=== PATIENT | male | born 1945 | race Caucasian/White ===

== ENCOUNTER 2016-03-13 09:45 | Emergency (ER) | payer BC ==
[2016-03-13 10:12] VITALS: BP 127/73
--- NOTE | 2016-03-13 11:35 | UC ---
Throat Pain/Nasal John HPI - HPI Summary HPI Summary: complaint of cough , nasal congestion that started approx 4-5 days ago slightly productive cough occasional headaches, denies ear pain sore throat seems to be getting better denies fever and chills has been taking zpack and finished it today - History of Current Complaint Chief Complaint: UCRespiratory Stated Complaint: COUGH Time Seen by Provider: 03/13/16 11:27 Hx Obtained From: Patient - Allergies/Home Medications Allergies/Adverse Reactions: Allergies Allergy/AdvReac Type Severity Reaction Status Date / Time Oxycodone [From Oxycontin] Allergy Unknown Hives Verified 03/13/16 10:12 Hydrocodone Allergy Hives Verified 03/13/16 10:12 Statins Allergy Hives Verified 03/13/16 10:12 Home Medications: Home Medications Aspirin EC TAB* [Ecotrin EC TAB*] 325 mg PO DAILY 03/13/16 [History Confirmed ] PMH/Surg Hx/FS Hx/Imm Hx Previously Healthy: Yes Endocrine History Of: Denies: Diabetes Cardiovascular History Of: Reports: Cardiac Disorders - Afib, Hypertension, Atrial Fibrillation Denies: Pacemaker/ICD Respiratory History Of: Denies: COPD, Asthma Neurological History Of: Reports: CVA - Admission Dx, possible - Surgical History Surgical History: Yes Surgery Procedure, Year, and Place: left knee replacement,prostate ca - Family History Known Family History: Positive: Hypertension, Diabetes, Other - ALZHEIMERS Negative: Cardiac Disease - Social History Occupation: Retired Lives: With Family Alcohol Use: Rare Substance Use Type: None Smoking Status (MU): Never Smoked Tobacco - Immunization History Most Recent Influenza Vaccination: never Most Recent Tetanus Shot: within ten years Most Recent Pneumonia Vaccination: never Review of Systems Constitutional: Negative Skin: Negative Eyes: Negative ENT: Nasal Discharge Respiratory: Cough Cardiovascular: Negative Gastrointestinal: Negative Genitourinary: Negative Motor: Negative Neurovascular: Negative Musculoskeletal: Negative Neurological: Negative Psychological: Negative All Other Systems Reviewed And Are Negative: Yes Physical Exam Triage Information Reviewed: Yes Appearance: No Pain Distress, Well-Nourished Vital Signs: Initial Vital Signs Temp 98.0 F 03/13/16 10:09 Pulse 80 03/13/16 10:09 Resp 16 03/13/16 10:09 BP 127/73 03/13/16 10:09 Pulse Ox 98 03/13/16 10:09 Eyes: Positive: Conjunctiva Clear ENT: Positive: Pharyngeal erythema, Nasal drainage, TMs normal, Other: - no sinus tenderness. Negative: TM bulging, TM red, Tonsillar swelling, Tonsillar exudate Neck: Positive: No Lymphadenopathy Respiratory: Positive: Lungs clear, Normal breath sounds, No respiratory distress Cardiovascular: Positive: RRR, No Murmur, Pulses Normal Abdomen Description: Positive: Nontender, Soft Bowel Sounds: Positive: Present Musculoskeletal: Positive: No Edema Neurological: Positive: Alert Psychological Exam: Normal Skin Exam: Normal Throat Pain/Nasal Course/Dx - Differential Dx/Diagnosis Differential Diagnosis/HQI/PQRI: Influenza, Pharyngitis, URI Provider Diagnoses: URI Discharge - Discharge Plan Condition: Stable Disposition: HOME Patient Education Materials: Upper Respiratory Infection (ED) Referrals: Tyrel Goel MD [Primary Care Provider] - Additional Instructions: VIRAL UPPER RESPIRATORY INFECTION (COMMON COLD) What is Viral Upper Respiratory Infection? Viral upper respiratory infection is the medical term for the common cold. Respiratory infections can be caused by either a virus or bacteria. The common cold is caused by a virus. The virus travels through the air and can be passed easily from one person to another. This is one reason that it is so important to cover your mouth when you cough or sneeze. When you cover your mouth you will get the virus on your hands. If you touch something with that hand the virus is spread to the object you touch. Because of this you should be sure to wash your hands often when you have a cold. Symptoms usually begin 1 to 3 days after the virus takes hold in your body. Other people can catch your cold even before you start to notice symptoms, which is one reason why colds are hard to prevent. Symptoms May Include: Scratchiness or tickling in the throat Sore throat Stuffy nose Generalized aches and pains Coughing or sneezing Feeling tired Treatment Recommendations: Drink plenty of clear, nonalcoholic fluids, such as water, sports drinks, or juice. For example, an average adult should drink 8 ounces every hour, a child 6 to 10 years should drink 4 ounces every hour, and a child under 6 should drink 1 to 2 ounces every hour. You should rest as much as possible. You can use a cool-mist humidifier or steam vaporizer to increase air moisture. This will make it easier to breathe. Remember that a steam vaporizer may contain hot water that can cause severe abreu. If you smoke, stopsmoke irritates bronchial passages. If you are coughing up mucus, and milk seems to make the sputum thicker, do not eat or drink foods that contain milk. You want to try to cough up mucous whenever possible so that you dont get pneumonia. Do not use cough suppressant medicine without your healthcare providers OK. You should take all medications prescribed until completely gone, or as instructed. Non-prescription medicine such as acetaminophen (Tylenol) or ibuprofen (Motrin , Advil) may help your aches, pains, and fever. Do not take someone else's medicine, or penicillin tablets that you may have saved. You could cause a more serious problem than you already have. Don't bundle up to sweat out a fever. It only makes your fever worse. If you feel cold, cover up; if you feel warm, dress lightly.
== END 2016-03-13 11:47 | disposition home or self-care (01) ==
LOC: UCCORT 09:45
DX: J06.9 Acute upper respiratory infection, unspecified (principal); Z96.652 Presence of left artificial knee joint; Z85.46 Personal history of malignant neoplasm of prostate; Z79.82 Long term (current) use of aspirin; Z88.5 Allergy status to narcotic agent; Z88.8 Allergy status to other drugs, medicaments and biological substances
CPT/HCPCS: 99211; G0463

== ENCOUNTER 2016-11-03 09:46 | Emergency (ER) | payer BC ==
[2016-11-03] MEDS ORDERED: Aspirin Low Dose CHEW TAB* 81 MG PO ONE (10:11)
--- NOTE | 2016-11-03 10:22 | UC ---
Shortness of Breath HPI - HPI Summary HPI Summary: shortness of breath x 4 weeks no chest pain , + palpitation Hx of Afib , sleep apnea on CPAP sx or sob is worse at night lying down, better in sitting/ standing no fever, no chills, no cough , + wheezing - History of Current Complaint Chief Complaint: UCRespiratory Stated Complaint: UPPER RESPIRATORY SHORTNESS OF BREATH Time Seen by Provider: 11/03/16 09:49 Hx Obtained From: Patient Onset/Duration: Gradual Onset, Lasting Weeks - 4, Still Present, Worse Since - past few days Timing: Constant Current Severity: Moderate Dyspnea At: Orthopena Aggrevating Factors: Deep Breaths, Recumbent Position Alleviating Factors: Nothing Associated Signs & Symptoms: Positive: Wheezing. Negative: Chest Pain w/Cough, Chest Pain Unrelated to Cough, Fever, Chills, Diaphoresis, Nasal Congestion, Dizzy, Calf Pain/Swelling, Edema - Allergy/Home Medications Allergies/Adverse Reactions: Allergies Allergy/AdvReac Type Severity Reaction Status Date / Time Oxycodone [From Oxycontin] Allergy Unknown Hives Verified 11/03/16 09:58 Hydrocodone Allergy Hives Verified 11/03/16 09:58 Statins Allergy Hives Verified 11/03/16 09:58 Home Medications: Home Medications Multivitamins/Minerals TAB* [Thera M Plus TAB*] 1 tab PO DAILY 11/03/16 [ History Confirmed 11/03/16] PMH/Surg Hx/FS Hx/Imm Hx Cardiovascular History: Hypertension, Atrial Fibrillation Respiratory History: Other - sleep apnea Other Respiratory History: SLEEP APNEA GI/ History: Gastroesophageal Reflux Neurological History: TIA, CVA - Surgical History Surgical History: Yes Surgery Procedure, Year, and Place: Left TKA, 2010, [facility] [place] - Family History Known Family History: Positive: Hypertension, Diabetes, Other - ALZHEIMERS Negative: Cardiac Disease - Social History Alcohol Use: Rare Substance Use Type: None Smoking Status (MU): Never Smoked Tobacco - Immunization History Most Recent Influenza Vaccination: Not the 2017/2017 Season Most Recent Tetanus Shot: within ten years Most Recent Pneumonia Vaccination: never Review of Systems Constitutional: Negative Skin: Negative Eyes: Negative ENT: Negative Respiratory: Shortness Of Breath Cardiovascular: Negative Gastrointestinal: Negative Genitourinary: Negative Motor: Negative Neurovascular: Negative Musculoskeletal: Negative Is Patient Immunocompromised?: No All Other Systems Reviewed And Are Negative: Yes Physical Exam Triage Information Reviewed: Yes Appearance: Well-Appearing, No Pain Distress, Well-Nourished Vital Signs: Initial Vital Signs Temp 97.1 F 11/03/16 09:59 Pulse 48 11/03/16 09:59 Resp 20 11/03/16 09:59 BP 145/82 11/03/16 09:59 Pulse Ox 98 11/03/16 09:59 Vital Signs Reviewed: Yes Eyes: Positive: Conjunctiva Clear ENT: Positive: Normal ENT inspection, Hearing grossly normal, Pharynx normal Neck exam: Normal Neck: Positive: Supple, Nontender Respiratory: Positive: Chest non-tender, Lungs clear, Normal breath sounds Cardiovascular: Positive: Tachycardia, Other: - irrigular/ irr Abdomen Description: Positive: Nontender, Soft Musculoskeletal Exam: Normal Skin Exam: Normal Shortness of Breath Dx - Course Course Of Treatment: AFIB WITH RAPID RATE / CHF. PT WILL GO TO [facility] FOR [facility]AL AND TX. PT. REFUSING AMBULANCE TRANSFER. 4 [facility]ABY ASPIRIN WAS GIVEN. SPOKE TO DR HOLT ABOUT THE TRANSFER - Differential Dx/Diagnosis Provider Diagnoses: afib. CHF Discharge - Discharge Plan Condition: Guarded Disposition: TRANS HIGHER LVL OF CARE FAC
[2016-11-03 10:23] VITALS: BP 130/72
== END 2016-11-03 10:28 | disposition short-term general hospital (02) ==
LOC: UCCORT 09:46
DX: I48.91 Unspecified atrial fibrillation (principal); I50.9 Heart failure, unspecified; I10 Essential (primary) hypertension; G47.30 Sleep apnea, unspecified; K21.9 Gastro-esophageal reflux disease without esophagitis; Z86.73 Personal history of transient ischemic attack (TIA), and cerebral infarction without residual deficits
CPT/HCPCS: 93005; 99212; A9270-GY; G0463

== ENCOUNTER 2016-11-03 11:36 | Observation (INO) | payer BC ==
[2016-11-03] MEDS ORDERED: Diltiazem IV* 5 MG/ML 5 ML VIAL (for loading dose/IV Push) (25 MG) IV PUSH ONE (12:25)
[2016-11-03] MEDS ORDERED: Diltiazem IV VIAL* 125 MG in D5W 100 ML BAG* 100 ML IV ONE (12:27)
[2016-11-03 12:58] LABS: Hematocrit 46 % (42-52); Hemoglobin 15.1 g/dl (14.0-18.0); Mean Corpuscular HGB Conc 33 g/dl (31-36); Mean Corpuscular Hemoglobin 30 pg (27-31); Mean Corpuscular Volume 90 fL (80-94); Mean Platelet Volume 8 um3 (7.4-10.4); Red Blood Count 5.11 10^6/ul (4.0-5.4); Red Cell Distribution Width 14 % (10.5-15); White Blood Count 6.9 10^3/ul (3.5-10.8)
[2016-11-03 13:21] LABS: Albumin 3.9 g/dL (3.2-5.2); BUN/Creatinine Ratio 20.3 (8-20); Calcium 8.9 mg/dL (8.6-10.3); EGFR Non-African American 55.2 (>60); Globulin 2.4 g/dL (2-4); Potassium 4.2 mmol/L (3.5-5.0); Total Bilirubin 1.6 mg/dL (0.2-1.0); Total Protein 6.3 g/dL (6.4-8.9)
[2016-11-03 13:22] LABS: Troponin I 0.03 ng/mL (<0.04)
--- NOTE | 2016-11-03 13:29 | RAD ---
INDICATION: Chest pain. COMPARISON: Comparison is made with a prior chest x-ray study from May 04, 2015. TECHNIQUE: Dual-energy PA and lateral views of the chest were obtained. FINDINGS: The heart appears mildly enlarged and unchanged from the prior exam. The lungs are underinflated. There is mild prominence of the interstitial markings and small bilateral pleural effusions. No focal infiltrate is seen. IMPRESSION: MILD INTERSTITIAL PROMINENCE AND SMALL BILATERAL PLEURAL EFFUSIONS SUGGESTING THE POSSIBILITY OF CONGESTIVE HEART FAILURE.
[2016-11-03] MEDS ORDERED: Furosemide IV* 10 MG/ML 2 ML VIAL (20 MG) IV SLOW PU ONE (14:14)
[2016-11-03] MEDS ORDERED: Ondansetron INJ* 2 MG/ML VIAL IV PRN (15:30)
[2016-11-03] MEDS ORDERED: Acetaminophen TAB* 325 MG PO PRN (15:30)
--- NOTE | 2016-11-03 15:32 | ED ---
Hitseh Salinas Rebecca, scribed for Tyrel Devine MD on 11/03/16 at 1330 . Shortness of Breath - HPI Summary HPI Summary: Pt is a 71 y/o M who presents to ED c/o acute on chronic SOB. Pt has been experiencing SOB for multiple months, with sx worsening in the last 3 days, reporting that he feels more SOB on exertion than previously. He additionally experiences SOB while laying in bed for the past 3 days as well as when he attempts to climb up a ladder. Additionally c/o fatigue, palpitations characterized as racing and a productive cough bringing up scant amounts of yellow sputum. Additionally notes an "odd sensation" in the upper chest. Denies fever, chills. PMHx A Fib for which he is not on medication and has not followed up with his disability services coordinator in 3 years. - History of Current Complaint Chief Complaint: EDShortnessOfBreath Time Seen by Provider: 11/03/16 12:11 Hx Obtained From: Patient Onset/Duration: Still Present, Worse Since - 3 days Dyspnea At: Exertion - Exertion and laying in bed Aggrevating Factors: Other - Exertion Alleviating Factors: Nothing Associated Signs & Symptoms: Cough (Productive) - Allergy/Home Medications Allergies/Adverse Reactions: Allergies Allergy/AdvReac Type Severity Reaction Status Date / Time Oxycodone [From Oxycontin] Allergy Unknown Hives Verified 11/03/16 09:58 Hydrocodone Allergy Hives Verified 11/03/16 09:58 Statins Allergy Hives Verified 11/03/16 09:58 PMH/Surg Hx/FS Hx/Imm Hx Endocrine/Hematology History: Denies: Hx Diabetes Cardiovascular History: Reports: Hx Angina, Hx Atrial Fibrillation, Hx Hypercholesterolemia, Hx Hypertension Denies: Hx Pacemaker/ICD Respiratory History: Reports: Hx Sleep Apnea - CPAP Denies: Hx Asthma, Hx Chronic Obstructive Pulmonary Disease (COPD) Musculoskeletal History: Reports: Hx Orthopedic Injury, Other Musculoskeletal History - left knee surgery, then replaced. Sensory History: Reports: Hx Contacts or Glasses, Hx Hearing Problem - "not very good" Denies: Hx Hearing Aid Opthamlomology History: Reports: Hx Contacts or Glasses Psychiatric History: Denies: Hx Panic Disorder - Cancer History Cancer Type, Location and Year: Prostate Hx Chemotherapy: No Hx Radiation Therapy: No - Surgical History Surgery Procedure, Year, and Place: Left TKA, 2010, [facility] Hx Anesthesia Reactions: No Infectious Disease History: No Infectious Disease History: Denies: Hx Clostridium Difficile, Hx Hepatitis, Hx Human Immunodeficiency Virus (HIV), Hx of Known/Suspected MRSA, Hx Shingles, Hx Tuberculosis, Hx Known/ Suspected VRE, Hx Known/Suspected VRSA, History Other Infectious Disease, Traveled Outside the [place] in Last 30 Days - Family History Known Family History: Positive: Hypertension, Diabetes, Other - ALZHEIMERS Negative: Cardiac Disease - Social History Alcohol Use: Rare Substance Use Type: Reports: None Smoking Status (MU): Never Smoked Tobacco Review of Systems Positive: Fatigue. Negative: Fever, Chills Positive: Palpitations - racing, Other - "odd sensation" in the chest Positive: Shortness Of Breath, Cough - productive - scant ywllow sputum All Other Systems Reviewed And Are Negative: Yes Physical Exam Vital Signs On Initial Exam: Initial Vitals Temp Pulse Resp BP Pulse Ox 98.7 F 125 18 141/100 97 11/03/16 11:40 11/03/16 11:40 11/03/16 11:40 11/03/16 11:40 11/03/16 11:40 - David Coma Scale Coma Scale Total: 15 Diagnostics - Vital Signs Vital Signs Temp Pulse Resp BP Pulse Ox 11/03/16 13:11 98 22 122/67 95 11/03/16 13:01 100 24 94 11/03/16 12:19 103 21 132/80 92 11/03/16 12:11 124 26 92 11/03/16 11:40 98.7 F 125 18 141/100 97 - Laboratory Lab Results: Lab Results 11/03/16 11/03/16 11/03/16 Range/Units 12:35 12:35 12:35 WBC 6.9 (3.5-10.8) 10^3/ul RBC 5.11 (4.0-5.4) 10^6/ul Hgb 15.1 (14.0-18.0) g/dl Hct 46 (42-52) % MCV 90 (80-94) fL MCH 30 (27-31) pg MCHC 33 (31-36) g/dl RDW 14 (10.5-15) % Plt Count 179 (150-450) 10^3/ul MPV 8 (7.4-10.4) um3 Neut % (Auto) 69.2 (38-83) % Lymph % (Auto) 19.7 L (25-47) % [place] % (Auto) 8.0 (1-9) % Eos % (Auto) 2.1 (0-6) % Baso % (Auto) 1.0 (0-2) % Absolute Neuts (auto) 4.8 (1.5-7.7) 10^3/ul Absolute Lymphs (auto) 1.4 (1.0-4.8) 10^3/ul Absolute Monos (auto) 0.6 (0-0.8) 10^3/ul Absolute Eos (auto) 0.1 (0-0.6) 10^3/ul Absolute Basos (auto) 0.1 (0-0.2) 10^3/ul Absolute Nucleated RBC 0.01 10^3/ul Nucleated RBC % 0.1 INR (Anticoag Therapy) 1.05 (0.89-1.11) D-Dimer, Quantitative 272 H (Less Than 230) ng/mL Sodium 138 (133-145) mmol/L Potassium 4.2 (3.5-5.0) mmol/L Chloride 106 (101-111) mmol/L Carbon Dioxide 24 (22-32) mmol/L Anion Gap 8 (2-11) mmol/L BUN 26 H (6-24) mg/dL Creatinine 1.28 H (0.67-1.17) mg/dL Est GFR ( Amer) 71.0 (>60) Est GFR (Non-Af Amer) 55.2 (>60) BUN/Creatinine Ratio 20.3 H (8-20) Glucose 132 H (70-100) mg/dL Lactic Acid (0.5-2.0) mmol/L Calcium 8.9 (8.6-10.3) mg/dL Total Bilirubin 1.60 H (0.2-1.0) mg/dL AST 24 (13-39) U/L ALT 30 (7-52) U/L Alkaline Phosphatase 56 (34-104) U/L Troponin I 0.03 (<0.04) ng/mL Total Protein 6.3 L (6.4-8.9) g/dL Albumin 3.9 (3.2-5.2) g/dL Globulin 2.4 (2-4) g/dL Albumin/Globulin Ratio 1.6 (1-3) 11/03/16 Range/Units 12:35 WBC (3.5-10.8) 10^3/ul RBC (4.0-5.4) 10^6/ul Hgb (14.0-18.0) g/dl Hct (42-52) % MCV (80-94) fL MCH (27-31) pg MCHC (31-36) g/dl RDW (10.5-15) % Plt Count (150-450) 10^3/ul MPV (7.4-10.4) um3 Neut % (Auto) (38-83) % Lymph % (Auto) (25-47) % [place] % (Auto) (1-9) % Eos % (Auto) (0-6) % Baso % (Auto) (0-2) % Absolute Neuts (auto) (1.5-7.7) 10^3/ul Absolute Lymphs (auto) (1.0-4.8) 10^3/ul Absolute Monos (auto) (0-0.8) 10^3/ul Absolute Eos (auto) (0-0.6) 10^3/ul Absolute Basos (auto) (0-0.2) 10^3/ul Absolute Nucleated RBC 10^3/ul Nucleated RBC % INR (Anticoag Therapy) (0.89-1.11) D-Dimer, Quantitative (Less Than 230) ng/mL Sodium (133-145) mmol/L Potassium (3.5-5.0) mmol/L Chloride (101-111) mmol/L Carbon Dioxide (22-32) mmol/L Anion Gap (2-11) mmol/L BUN (6-24) mg/dL Creatinine (0.67-1.17) mg/dL Est GFR ( Amer) (>60) Est GFR (Non-Af Amer) (>60) BUN/Creatinine Ratio (8-20) Glucose (70-100) mg/dL Lactic Acid 1.5 (0.5-2.0) mmol/L Calcium (8.6-10.3) mg/dL Total Bilirubin (0.2-1.0) mg/dL AST (13-39) U/L ALT (7-52) U/L Alkaline Phosphatase (34-104) U/L Troponin I (<0.04) ng/mL Total Protein (6.4-8.9) g/dL Albumin (3.2-5.2) g/dL Globulin (2-4) g/dL Albumin/Globulin Ratio (1-3) Result Diagrams: 11/03/16 12:35 11/03/16 12:35 Lab Statement: Any lab studies that have been ordered have been reviewed, and results considered in the medical decision making process. - Radiology CXR Xray Interpretation: Positive (See Comments) - MILD INTERSTITIAL PROMINENCE AND SMALL BILATERAL PLEURAL EFFUSIONS SUGGESTING THE POSSIBILITY OF CONGESTIVE HEART FAILURE. ED physician reviewed radiology report and agrees. Radiology Interpretation Completed By: Radiologist - EKG 1231 Cardiac Rate: Tachycardia - 101 bpm EKG Rhythm: Atrial Fibrillation EKG Interpretation: No STEMI Course/Dx - Course Assessment/Plan: Pt is a 71 y/o M who presents to ED c/o acute on chronic SOB, present for multiple months, with sx worsening in the last 3 days, reporting that he feels more SOB on exertion than previously. He additionally experiences SOB while laying in bed for the past 3 days as well as when he attempts to climb up a ladder. Additionally c/o fatigue, palpitations characterized as racing and a productive cough bringing up scant amounts of yellow sputum. Additionally notes an "odd sensation" in the upper chest. Denies fever, chills. PMHx A Fib for which he is not on medication and has not followed up with his disability services coordinator in 3 years. CXR reveals mid interstitial prominence and small bilateral pleural effusions suggesting the possibility of CHF. EKG is sinus tachycardia in A Fib. Troponin of 0.03. In the ED course, pt was given Diltiazem and Lasix IV. Discussed care of pt with Dr. Shah who accepts pt for admission. Pt will be admitted with Dx of CHF and A Fib. He understands and agrees. Pt medications reviewed this visit. Elevated BP noted and advised to f/ u with PCP. - Diagnoses Provider Diagnoses: CHF (congestive heart failure), A-fib - Physician Notifications Discussed Care of Patient With: Genie Shah Time Discussed With Above Provider: 14:13 Instructed by Provider To: Other - Accepts pt for admission Discharge - Discharge Plan Condition: Stable Disposition: ADMITTED TO [facility] documentation as recorded by the Hitesh acevedo Rebecca accurately reflects the service I personally performed and the decisions made by , Tyrel Devine MD.
[2016-11-03] MEDS ORDERED: Rivaroxaban TAB(*) 20 MG TAB PO SCH (17:00)
[2016-11-03] MEDS: Metoprolol Tartrate TAB* 25 MG PO SCH ×2 (17:15→21:37)
--- NOTE | 2016-11-03 20:48 | HP ---
CC: Dr. Tyrel Goel* ADMISSION HISTORY AND PHYSICAL: DATE OF ADMISSION: 11/03/2016. PRIMARY CARE PROVIDER: Dr. Tyrel Goel. ADMITTING PROVIDER: ELAINE Hong SUPERVISING PHYSICIAN: Dr. Genie Saldaña* (dictated by ELAINE Hong). CHIEF COMPLAINT: Shortness of breath. HISTORY OF PRESENT ILLNESS: This is a 71-year-old gentleman with a known history of atrial fibrillation as well as a prior CVA in April of 2015, who presented to the emergency department with complaints of persistent shortness of breath for the last 3 to 4 days. The patient states that he has had intermittent episodes of dyspnea on exertion over the last year or so, but for the last 3 to 4 days, he has had persistent shortness of breath with an associated dry cough and noted that his symptoms are worse when lying flat. Denies any lower extremity edema or fever. No other recent acute illness. The patient was admitted just about a year and a half ago in April of 2015 at which point he sustained a CVA. He was initiated on anticoagulation with Coumadin at that time, which was later switched to Xarelto for the patient's preference and was using metoprolol for rate control and was also on a statin medication for control of his hyperlipidemia. The patient states that he overall felt fatigued and unwell while on these medications and decided to stop all of them. This sounds like shortly after they were initiated and has not been on any medications since and apart from what was described above has otherwise been asymptomatic. PAST MEDICAL HISTORY: 1. Chronic kidney disease, stage 3. 2. Atrial fibrillation. 3. CVA. 4. Hyperlipidemia. 5. Obstructive sleep apnea, compliant with CPAP. PAST SURGICAL HISTORY: Left total knee replacement. HOME MEDICATIONS: 1. Aspirin 325 mg p.o. daily. 2. Multivitamin 1 tablet p.o. daily. SOCIAL HISTORY: The patient lives at home with his . No smoking history and rare alcohol consumption. REVIEW OF SYSTEMS: As noted above in HPI, all other systems reviewed and otherwise negative. PHYSICAL EXAMINATION GENERAL: This is a pleasant elderly gentleman who appears younger than stated age and is accompanied by his , lying comfortably in a hospital stretcher. VITAL SIGNS: Initially, temperature 98.7 degrees Fahrenheit, pulse 125 beats per minute, respiratory rate 18 per minute, oxygen saturation 97% on room air, and blood pressure 141/100 mmHg. Heart rate has now improved to an average of 75 beats per minute on diltiazem drip. HEENT: Head is normocephalic, atraumatic. Mucous membranes are pink and moist. RESPIRATORY: Lungs are clear to auscultation without wheezes, crackles, or rhonchi. CARDIOVASCULAR: The patient has a slightly irregular rhythm. No murmurs, rubs , or gallops appreciated. ABDOMEN: Soft and nontender to palpation. EXTREMITIES: No lower extremity edema appreciated. SKIN: Limited. Exam shows no concerning rashes or lesions. DIAGNOSTIC STUDIES/LAB DATA: CBC is essentially within normal limits. White blood cell count is 6900, hemoglobin of 15.1 g/dL, and platelet count of 179, 000. D-dimer of 272. Comprehensive metabolic panel shows sodium of 138 mmol/dL, potassium 4.2, serum bicarb of 24, BUN 26, creatinine 1.28, random glucose of 132, and lactic acid normal at 1.5. Total bilirubin mildly elevated at 1.6. Transaminases within normal limits. Troponin negative at 0.03. BNP mildly elevated at 339. Imaging: EKG shows an atrial fibrillation with the rate of 100 to 120 beats per minute. Chest x-ray is read as mild interstitial prominence and small bilateral effusions. Review of echocardiogram from April of 2015 showed some [id number] LVH, but normal EF of 50% to 55%. ASSESSMENT AND PLAN: This is a 71-year-old gentleman with known atrial fibrillation, prior cerebrovascular accident, chronic kidney disease, hyperlipidemia, and obstructive sleep apnea, who decided against continuing his prior anticoagulation and rate control medications and presents with complaints of shortness of breath and rapid atrial fibrillation. 1. Atrial fibrillation with rapid ventricular rate - the patient after extensive education is agreeable to resume anticoagulation in the form of Xarelto and rate control in the form of metoprolol. He is currently rate controlled on diltiazem drip at the rate of 10 mL an hour and has received 1 dose of Lasix in the emergency department and his presenting complaint of shortness of breath has nearly resolved. We will start metoprolol tartrate at this time in an attempt to discontinue the diltiazem drip and titrate up the oral metoprolol to average rate in the 70s or so. 2. Acute diastolic heart failure - based on prior echo results, the patient has some chronic diastolic dysfunction and the patient presents with evidence of mild fluid overload, which is likely driven by his rapid ventricular rate. He received a dose of Lasix in the emergency department and his rate has been controlled on a diltiazem drip and his complaints of shortness of breath have resolved. Echocardiogram is pending for tomorrow. 3. Hyperlipidemia - the patient is unwilling to restart a statin medication. 4. Chronic kidney disease, stage 3. His BUN and creatinine appeared to be near baseline. 5. Obstructive sleep apnea. This patient is compliant with CPAP and this will be continued during his hospital stay. 6. Code status. The patient is full code. 7. Healthcare proxy is his . 8. DVT prophylaxis - the patient will be started on Xarelto. DISPOSITION: The patient is being admitted under observation status with anticipated length of stay to be less than 2 midnights. Would also recommend an outpatient Cardiology consultation for this gentleman. ELAINE HONG [id number]/CPS #: [id number] MTDD
[2016-11-03] MEDS ORDERED: Diltiazem DRIP* 100 MG/100 ML ADDV.BAG IVPB ONE (21:50)
[2016-11-04 06:07] LABS: Calcium 8.9 mg/dL (8.6-10.3); EGFR African American 65.7 (>60); EGFR Non-African American 51.1 (>60); Magnesium 2.2 mg/dL (1.9-2.7); Potassium 4.2 mmol/L (3.5-5.0)
[2016-11-04] MEDS: Metoprolol Tartrate TAB* 25 MG PO SCH (08:58)
--- NOTE | 2016-11-04 11:44 | ECHO ---
Patient: ROSS MCKEON [facility] Rec#: [id number] : 1945 Date: 11/04/2016 Age: 71y Height: 172.72 cm / 68.0 in Weight: 95.25 kg / 209.9 lbs Sex: M BSA: 2.09 Room#: 431 Admit Date#: 11/03/2016 Type: Inpatient Referring: Keshav Cardoza Reading: Evelyn Pablo MD Director Of Student Affairs: Teresita Camacho RDCS CC: Tyrel Goel MD Transthoracic Echocardiogram Indication: A-fib, shortness of breath BP: 118/56 HR: 82 Rhythm: A-Fib Findings History: A-fib, HTN, HLD, AAKASH with CPAP, prostate cancer, CKD III. Technical Comments: The study quality is fair. Completed at 1100. Left Ventricle: The left ventricular chamber size is mildly dilated. Mild concentric left ventricular hypertrophy is observed. There is moderate to severely decreased left ventricular systolic function. The estimated ejection fraction is 30-35%. The assessment of diastolic function is non-diagnostic. Left Atrium: The left atrium is severely dilated. Right Ventricle: Moderator Band present. The right ventricle is mildly dilated. The right ventricular global systolic function is low normal. Right Atrium: The right atrial cavity size is severely dilated. Aortic Valve: The aortic valve is trileaflet. There is mild thickening of the non coronary cusp. Systolic excursion of the aortic valve is normal. There is mild aortic regurgitation. There is no evidence of aortic stenosis. Mitral Valve: The mitral valve leaflets are moderately thickened. There is moderate to severe mitral regurgitation. The mitral regurgitant jet is laterally directed. There is no evidence of mitral stenosis. Tricuspid Valve: The tricuspid valve leaflets are mildly thickened. There is mild to moderate tricuspid regurgitation. The right ventricular systolic pressure is estimated at 59 mmHg. There is evidence of moderate to severe pulmonary hypertension. There is no tricuspid stenosis. Pulmonic Valve: The pulmonic valve appears normal. There is mild pulmonic regurgitation. There is no pulmonic stenosis. Pericardium: There is a small pericardial effusion. There are no signs of significant hemodynamic compromise. Aorta: There is moderate dilatation of the ascending aorta. There is no dilatation of the aortic arch. There is mild dilatation of the aortic root. Pulmonary Artery: The main pulmonary artery appears normal. Venous: The inferior vena cava is dilated. There is a greater than 50% respiratory change in the inferior vena cava dimension. Conclusions Mild concentric left ventricular hypertrophy is observed. There is moderate to severely decreased gobal left ventricular systolic function. The estimated ejection fraction is 30-35%, this may be overestimated due to significant mitral insufficiency. The right ventricular global systolic function is low normal. The right ventricle is mildly dilated. The atria are severely dilated. There is aortic valve sclerosis with mild aortic regurgitation. There is moderate to severe mitral regurgitation, thick wide lateral jet. There is mild to moderate tricuspid regurgitation. The right ventricular systolic pressure is estimated at 59 mmHg. There is a small pericardial effusion. There is moderate dilatation of the ascending aorta: 4.2 cm. Compared with prior [facility] [place] [place] f 04/16/15, the EF has decreased from 55-60%, the degree of MR has increased from moderate, TR has also increased. Elevated PA pressure newly noted. Measurements Name Value Normal Range RVIDd (AP) 2D 3.5 cm (0.9 - 2.6) RVDdMajor (2D) 4.3 cm (2.2 - 4.4) RVAW (2D) 0.9 cm (0.2 - 0.5) RAd ISD 4CH 6.6 cm (3.4 - 4.9) RA (A4C)W 4.5 cm (2.9 - 4.6) IVSd (2D) 1.1 cm (0.6 - 1) LVPWd (2D) 1.1 cm (0.6 - 1) LVIDd (2D) 5.7 cm (3.6 - 5.4) LVIDs (2D) 3.5 cm - LV FS (2D) 37 % (25 - 45) Aortic Annulus 2 cm (1.4 - 2.6) Ao root diameter (2D) 3.6 cm (2.1 - 3.5) Ascending Ao 4.2 cm (2.1 - 3.4) Aortic arch 3.2 cm (1.8 - 3.4) LA dimension (AP) 2D 4.7 cm (2.3 - 3.8) LAd ISD 4CH 7.1 cm (2.9 - 5.3) LA ISD 4CH W 5.6 cm (2.5 - 4.5) Name Value Normal Range LA ESV SP 4CH (A/L) 126 ml - LA ESV SP 2CH (A/L) 115 ml - LA ESV BP (A/L) 121 ml - LA ESV BP (A/L) index 58 ml/m2 - LA ESV SP 4CH (MOD) 116 ml - LA ESV SP 2CH (MOD) 107 ml - Name Value Normal Range MV E-wave Vmax 0.93 m/sec - MV deceleration time 180 msec - LV septal e' Vmax 0.07 m/sec - LV lateral e' Vmax 0.11 m/sec - LV E:e' septal ratio 13.29 ratio - LV E:e' lateral ratio 8.45 ratio - Name Value Normal Range AV Vmax 1.16 m/sec - AV VTI 31.85 cm - AV peak gradient 5.65 mmHg - AV mean gradient 2.92 mmHg - LVOT diameter 2.2 cm - LVOT Vmax 0.8 m/sec - LVOT VTI 12.73 cm - LVOT peak gradient 3.04 mmHg - LVOT mean gradient 1.43 mmHg - AR PHT 865.8 msec - STEFAN Vmax 0.52 m/sec - Name Value Normal Range MR Vmax 4.78 m/sec - MR VTI 136 cm - Name Value Normal Range TR Vmax 3.3 m/sec - TR peak gradient 44 mmHg - RAP 15 mmHg - RVSP 59 mmHg - IVC diameter 2.35 cm - Name Value Normal Range PV Vmax 0.72 m/sec - PV peak gradient 2.11 mmHg - WA end-diastolic Vmax 1.49 m/sec -
[2016-11-04 11:46] VITALS: BP 128/78
--- NOTE | 2016-11-05 04:42 | DS ---
CC: Dr. Tyrel Goel; Dr. Sosa.* DISCHARGE SUMMARY: DATE OF ADMISSION: 11/03/16 DATE OF DISCHARGE: 11/04/16 PRIMARY CARE PROVIDER: Dr. Tyrel Goel. PRIMARY TEACHER [place]ER[place]ARTEN: Dr. Johnson. DISCHARGING PROVIDER: ELAINE Hong SUPERVISING PHYSICIAN: Dr. Barry Ortega* (dictated by ELAINE Hong). PRIMARY DISCHARGE DIAGNOSES: 1. Atrial fibrillation with rapid ventricular rate. 2. 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 SECONDARY DISCHARGE DIAGNOSES: 1. Chronic kidney disease, stage 3. 2. History of cerebrovascular accident without residual deficit. 3. Obstructive sleep apnea, compliant with CPAP. 4. Hyperlipidemia. DISCHARGE MEDICATIONS: 1. Lisinopril 5 mg p.o. daily. 2. Metoprolol succinate 50 mg p.o. daily. 3. Multivitamin 1 tablet p.o. daily. 4. Xarelto 20 mg p.o. daily. Medication changes: 1. Stop full dose aspirin. 2. Start Xarelto. 3. Start metoprolol. 4. Start lisinopril. HOSPITAL IMAGIN. Chest x-ray shows mild interstitial prominence and small bilateral pleural effusion suggesting possibility of CHF. 2. Initial EKG shows AFib with the rate of 100 to 120 beats per minute, repeat on day of discharge shows AFib with the rate of 70 beats per minute. 3. Transthoracic echocardiogram shows mild LVH with moderate to severely decreased global left ventricular systolic function with an estimated EF of 30% to 35%. Right ventricle was mildly dilated, moderate to severe MR. HOSPITAL COURSE: This is a 71-year-old gentleman with a known history of atrial fibrillation and prior stroke, who presented to the emergency department with complaints of shortness of breath. The patient states that he had similar , but intermittent symptoms mostly associated with exertion over the last year or so, but when his shortness of breath became persistent over the last several days, he came to the ER for further evaluation. Initial EKG demonstrated atrial fibrillation with the rate of about 120 beats per minute and chest x-ray was suggestive of some mild pulmonary edema. The patient was last seen about a year and half ago when he experienced the CVA and at which point the atrial fibrillation was recognized and the patient was started on appropriate anticoagulation and rate control medication. The patient states that the medications made him feel poorly, so he discontinued these medications shortly after that hospital visit and has not followed up with his primary care provider in a couple of years. The patient was reluctantly agreeable to reinitiate appropriate medical therapy and his rate was easily controlled initially with the diltiazem drip and transitioned to oral metoprolol. He was started on Xarelto for anticoagulation. Echocardiogram demonstrated global systolic dysfunction most likely consistent with a tachycardia- induced myopathy based on his known history of atrial fibrillation from what sounds like this has been persistent for quite some time. The patient was last seen by Dr. Sosa just less than 3 years ago and will be set up for an outpatient followup visit. At the time of discharge, he has rate controlled AFib with heart rate of about 70 beats per minute and his initial complaints of shortness of breath resolved. DISPOSITION AND FOLLOWUP PLAN: The patient is being discharged to home with medication changes as outlined above. Dr. Sosa's office will contact the patient with the followup appointment. He should otherwise followup with his primary care provider as well. Also of note, the patient refused to initiate statin therapy. ELAINE HONG [id number]/[facility] #: [id number] CHAVEZ
== END 2016-11-04 13:50 | disposition home or self-care (01) ==
LOC: ED 11:36 → MEDTELE 14:38
PROVIDERS: ADMIT Internal Medicine; ATTEND Internal Medicine
DX: I48.91 Unspecified atrial fibrillation (principal); I50.21 Acute systolic (congestive) heart failure; G72.89 Other specified myopathies; N18.3 Chronic kidney disease, stage 3 (moderate); G47.33 Obstructive sleep apnea (adult) (pediatric); E78.5 Hyperlipidemia, unspecified; Z86.73 Personal history of transient ischemic attack (TIA), and cerebral infarction without residual deficits; R06.02 Shortness of breath; I34.0 Nonrheumatic mitral (valve) insufficiency; I35.1 Nonrheumatic aortic (valve) insufficiency; I36.1 Nonrheumatic tricuspid (valve) insufficiency
CPT/HCPCS: 36415; 71020; 80048; 80053; 83605; 83735; 83880; 84484; 85025; 85379; 85610; 87040; 93005; 93306; 96374; 96375; 99285; G0378; J1940

== ENCOUNTER 2017-04-26 14:30 | Emergency (ER) | payer BC ==
--- NOTE | 2017-04-26 14:57 | UC ---
General HPI - HPI Summary HPI Summary: pt is c/o having a cough with chest congestion for about 2-3 days. pt's sated he was weak at time of triage; however, pt disputes that. he states he was lying on his couch being comfortable and did not want to get up is all. he state he isn't weak only a little stiff like every day of the week. pt has hx afib but denies cp. 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 he wants to ensure it not more than a cold as a result. - History of Current Complaint Stated Complaint: UPPER RESPITORY Time Seen by Provider: 04/26/17 14:49 Hx Obtained From: Patient, Family/Sprinkler Fitter Apprentice Onset/Duration: Gradual Onset Onset Severity: Mild Current Severity: Mild Aggravating: nothing Alleviating: nothing Associated Signs & Symptoms: Positive: Anticoagulation Therapy, Cough. Negative : Chest Pain, Dizziness, Edema, Fever, Nausea, SOB, Vomiting, Wheezing - Allergy/Home Medications Allergies/Adverse Reactions: Allergies Allergy/AdvReac Type Severity Reaction Status Date / Time hydrocodone Allergy Hives Verified 04/26/17 14:56 oxycodone [From OxyContin] Allergy Hives Verified 04/26/17 14:56 Gnybjdt-Ttl-Zip Reductase Allergy Hives Verified 04/26/17 14:56 Inhibitor Home Medications: Home Medications Valsartan TAB* [Diovan TAB*] 80 mg PO DAILY 04/26/17 [History Confirmed 04/26/17 ] PMH/Surg Hx/FS Hx/Imm Hx Endocrine History: Dyslipidemia Cardiovascular History: Atrial Fibrillation, Deep Vein Thrombosis - Surgical History Surgical History: Yes Surgery Procedure, Year, and Place: Left TKA, 2010, [facility] - Family History Known Family History: Positive: Hypertension, Diabetes, Other - ALZHEIMERS Negative: Cardiac Disease - Social History Occupation: Employed Full-time Lives: With Family Alcohol Use: Rare Alcohol Amount: 1 beer/month Substance Use Type: None Smoking Status (MU): Never Smoked Tobacco - Immunization History Most Recent Influenza Vaccination: Not the 2017/2017 Season Most Recent Tetanus Shot: within ten years Most Recent Pneumonia Vaccination: never Vaccination Up to Date: Yes Review of Systems Constitutional: Negative Skin: Negative Eyes: Negative ENT: Negative Respiratory: Cough Cardiovascular: Negative Gastrointestinal: Negative Genitourinary: Negative Motor: Negative Neurovascular: Negative Musculoskeletal: Arthralgia - chronic Neurological: Negative Psychological: Negative Is Patient Immunocompromised?: No All Other Systems Reviewed And Are Negative: Yes Physical Exam Triage Information Reviewed: Yes Appearance: Well-Appearing Vital Signs Reviewed: Yes Eyes: Positive: Conjunctiva Clear ENT: Positive: Pharynx normal, TMs normal. Negative: Nasal congestion, Nasal drainage Neck: Positive: Supple, Nontender, No Lymphadenopathy, Other: - No JVD Respiratory: Positive: Lungs clear, No respiratory distress, Decreased breath sounds Cardiovascular: Positive: Pulses Normal, Other: - irregulary irregular(hx afib) , rate 82. No pedal edema Abdomen Description: Positive: Nontender, No Organomegaly, Soft. Negative: Distended, Guarding Bowel Sounds: Positive: Present Musculoskeletal: Positive: ROM Intact, No Edema Neurological: Positive: Alert Psychological: Positive: Age Appropriate Behavior Skin Exam: Normal Diagnostics - Laboratory Diagnostic Studies Completed/Ordered: rapid flu=neg - Radiology No standard instances Xray Interpretation: No Acute Changes Radiology Interpretation Completed By: Radiologist Course/Dx - Course Course Of Treatment: pt had a negative cardiac stress test 6 months ago. he has no cp. he is not hypoxic and this complaint is not exertional. no concern for acs. no concern for chf. cxr=nad. rapid flu neg and pt is opting out of preventive tx with tamiflu. close f/u with pcp stressed at time of visit. - Differential Dx - Multi-Symptom Provider Diagnoses: bronchitis. flu exposure Discharge - Discharge Plan Condition: Stable Disposition: HOME Patient Education Materials: Acute Bronchitis (ED), Influenza (ED) Referrals: Tyrel Goel MD [Primary Care Provider] - 4 Days
[2017-04-26 14:59] VITALS: BP 108/79
--- NOTE | 2017-04-26 16:08 | RAD ---
INDICATION: Cough. Chest congestion COMPARISON: December 14, 2016 TECHNIQUE: PA and lateral dual-energy views were obtained. FINDINGS: Bones/Soft Tissues: There are no acute bony findings. Cardiomediastinal: The cardiac silhouette is mildly prominent. There is uncoiling of the thoracic aorta. Lungs: There are no infiltrates. Pleura: There are no pleural effusions. Other: None IMPRESSION: NO ACTIVE DISEASE.
== END 2017-04-26 16:26 | disposition home or self-care (01) ==
LOC: UCCORT 14:30
DX: J40 Bronchitis, not specified as acute or chronic (principal); Z20.828 Contact with and (suspected) exposure to other viral communicable diseases; Z88.8 Allergy status to other drugs, medicaments and biological substances
CPT/HCPCS: 71046; 87502; 99211; G0463

== ENCOUNTER 2017-12-10 09:07 | Emergency (ER) | payer BC ==
--- OUTSIDE RECORDS SUMMARY | 2017-12-10 09:18 | XMS REPORT ---
:1945 External Reference #:[id number] Author Organization [facility] Address [address] [place] [id number] Phone [phone] Care Team Providers Name Role Phone Tyrel Goel III, MD Primary Care Physician Unavailable Payers Type Date Identification Numbers Payment Provider Subscriber Commercial Effective: Policy Number: BS Facets C Ned Stewart 2011 [id number] PayID: [id number] [place] [id number] Problems Date Description Provider Status Onset: 01/29/2011 Malignant essential hypertension Tyrel Goel M.D. Active Onset: 01/29/2011 Pure hypercholesterolemia Tyrel Goel M.D. Active Onset: 01/29/2011 Impaired fasting glycaemia Tyrel Goel M.D. Active Onset: 01/29/2011 History of malignant neoplasm of Tyrel Goel M.D. Active prostate Onset: 02/22/2012 Benign essential hypertension Tyrel Goel M.D. Active Onset: 02/22/2012 Atrial fibrillation Tyrel Goel M.D. Active Onset: 09/13/2012 Chest pain Olivia Dale D.O. Active Onset: 05/16/2013 Difficulty breathing Alexis Sosa M.D. Active Onset: 05/16/2013 Hyperlipidemia Alexis Sosa M.D. Active Onset: 05/16/2013 Obesity Alexis Sosa M.D. Active Onset: 07/04/2013 Malaise and fatigue ELAINE Matthew Active Onset: 05/09/2015 Chronic atrial fibrillation Tyrel Goel M.D. Active Onset: 05/29/2015 Obstructive sleep apnea syndrome Tyrel Goel M.D. Active Onset: 07/09/2015 Essential hypertension Tyrel Goel M.D. Active Social History Type Date Description Comments Marital Status Lives With 01/05/2017 Spouse Ned Occupation [employer] Cigarette Use Never Smoked Cigarettes ETOH Use Rarely consumes alcohol Smoking Patient has never smoked Recreational Drug Use Denies Drug Use Daily Caffeine Iced/Hot Tea 3 cups a week. Daily Caffeine Soda Maybe 1 a week. Exercise Type/Frequency Exercises sporadically Allergies, Adverse Reactions, Alerts Date Description Reaction Status Severity Comments 11/10/2016 Oxycodone active 11/13/2016 Hydrocodone active 11/13/2016 Simvastatin severe myalgias active Moderate to Severe 01/05/2017 Prednisone active 03/09/2017 Lisinopril cough active Mild 09/23/2010 NKDA inactive Medications Medication Date Status Form Strength Qnty SIG Indications Ordering Provider Losartan 12/08 Active Tablets 25mg 30tab 1 by mouth I10 Alexis Potassium s every day Fei Sosa M.D. Praluent 11/30 Active Solution 75mg/ml 2ml 1 injection sc Jessica S. Pen-Injec every 2 weeks jhonatan Meza (Pt not taking N.P. presently) Cartia XT 11/10 Active Caps ER 180mg 90cap Take One I48.2 24HR s Capsule By Manasa, Mouth Every M.D. Day Xarelto 05/08 Active Tablets 20mg 90tab Take One Tyrel s Tablet By Manasa, Mouth Every M.D. Day Multi Vitamin Active Tablets daily Unknown Daily /0000 Zinc Active Capsules 30mg 1 by mouth prn Unknown / sore throat Glucosamine Active Capsules 500mg 2 by mouth Unknown /0000 every day [place]-3 Epa Active Capsules 3750 with 1350 mg Unknown Fish Oil / Epa, 900 mg Dha Irbesartan 08/27 Hx Tablets 75mg 90tab 1 by mouth Tyrel E. s every day 09/03 Khadra Goel MDc 12/08 Rosuvastatin 03/09 Hx Tablets 5mg 14tab take 2 Jessica S. s tablet by Foster, - mouth once N.P. 12/07 weekly. Valsartan 01/05 Hx Tablets 40mg 90tab 1 by mouth I42.9 s every day Khadra Rivera M.D. 08/27 Metoprolol 11/10 Hx Tablets 50mg 90tab 1 by mouth Tyrel E. Succinate ER 24HR s every day Khadra Goel M.D. 11/10 Viagra 06/11 Hx Tablets 25mg 6tabs 1 by mouth 1 Ytrel EYadira /2015 hour p/t Khadra Goel as M.DYadira 12/08 needed( taking per patient) Doxycycline 04/28 Hx Capsules 100mg 20cap one tablet J20.9 [place] [facility] s twice daily SARAH Reyes - for 10 days. 05/08 Cardizem [place] 07/26 Hx Tablets 240mg 30tab 1 tab in in 427.31 ER 24HR s the morning Fei Sosa - daily M.DYadira 05/07 Toprol XL 07/04 Hx Tablets 25mg 30tab Take 1/2 427.31 ER 24HR s tablet daily Khadra Rivera M.DYadira 07/26 Cardizem [place] 07/04 Hx Tablets 180mg 30tab take 1 tablet 427.31 ER 24HR s daily Khadra Rivera M.DYadira 07/26 Toprol XL 05/16 Hx Tablets 50mg 30tab 1/2 by mouth ER 24HR s every day Khadra RiveraDYadira 07/04 Cardizem CD 05/16 Hx Caps ER 120mg 90cap 1 by mouth 24HR s every day Khadra RiveraDYadira 07/04 Toprol XL 09/13 Hx Tablets 50mg 30tab 1 tablet po qd ER 24HR s Khadra Rivera M.D. 05/16 Toprol XL 03/09 Hx Tablets 50mg 30tab 1 po qd ER 24HR s Khadra Dale D.O. 09/13 Xarelto 02/21 Hx Tablets 20mg 30tab 1 po qd with 427.31 Tyrel Oliveira s evening meal Khadra Goel M.D. 03/09 Fish Oil 01/29 Hx Capsules 500mg 1 daily when Tyrel Randhawa- remembered Khadra Goel M.D. 09/13 Amoxicillin/Po 09/23 Hx Tablets 875-125mg 20tab 1 tab po 2x 785.6 Safia tassium /2010 s per day Samuels Clavulanate Khadra Stone 01/29 Lisinopril 12/30 Hx Tablets 20mg 30tab Take One 401.0 Tyrel Oliveira s Tablet By Manasa - Mouth Every M.DYadira Lisinopril 12/30 Hx Tablets 20mg 90tab / tablet 401.0 Tyrel Oliveira /2009 s daily Khadra Goel M.D. 09/13 Aspir-81 04/20 Hx Tablets 81mg 1 PO qd Tyrel Oliveira /2007 Khadra Calderon M.D. 03/24 Vitamins & 04/20 Hx Tablets 1 PO qd Tyrel Oliveira Minerals /2007 Khadra Goel M.D. 05/08 Fish Oil 04/20 Hx Oil Tyrel Oliveira /2007 Khadra Goel M.D. 09/14 Glucosamine/Ch 04/20 Hx Capsules 1 PO qd ismael Garcia /2007 MD Andrey - 09/14 Nitroquick 04/20 Hx Tablets 0.4mg 25tab q5 min x3 prn Tyrel Oliveira /2007 Sub s Khadra Goel M.D. 09/14 Lopressor 04/20 Hx Tablets 25mgM 60tab 1 po bid Tyrel Oliveira /2007 s Khadra Goel M.D. 09/14 Zinc Hx Tablets 15mg 1 prn if he Unknown /0000 has a sore - throat 05/08 Aspirin Ec Hx Tablets 81mg 1 po qd Unknown /0000 DR Gaviria 05/08 Zithromax Hx Tablets 250mg 11tab 1 tab take 2 Unknown /0000 s on day 1, then - 1 daily 01/14 Diltiazem HCL 00/ Hx Caps ER 120mg 1 tab in in I48.1 Unknown ER Coated /0000 24HR the morning Beads - daily 11/09 Warfarin 00/00 Hx Tablets 5mg Take 1 tab by Unknown Sodium /0000 mouth every - day@1700. 05/22 Atorvastatin 00/00 Hx Tablets 40mg 1 by mouth Unknown Calcium /0000 every day - (Hold 2-3 Lovenox 00/ Hx Solution 100mg/ml 10ml 1 Tyrel E. /0000 subcutaneously Manasa, - every 12 hours M.D. 05/22 as Multivitamins 00/00 Hx Unknown /0000 - 05/28 Lisinopril 00 Hx Tablets 5mg 90tab 1 by mouth I42.9 Tyrel E. /0000 s every day Manasa, - M.D. 01/05 Vitamin B12 00 Hx Tablets 1000mcg 1 by mouth Unknown /0000 ER every day - 12/07 Medications Administered in Office Medication Date Status Form Strength Qnty SIG Indications Ordering Provider Technetium TC Administered Injection Adán S. 99M 017 DO Chay Tetrofosmin, FACC Per Unit Dose Up To 40 Millicuries Immunizations CPT Code Status Date Vaccine Lot # [id number] Given 11/10/2016 Influenza Virus Vaccine, Quadrivalent, Split, [id number] Preservative Free [id number] Given 07/09/2015 Tdap - Tetanus/Diptheria/Acellular Pertussis [id number] Given 07/09/2015 Pneumococcal Conjugate Vaccine 13 Valent For [id number] Intramuscular Use [id number] Given 12/30/2009 Pneumonia Vaccine [id number] Vital Signs Date Vital Result Comment 12/08/2017 Height 68 inches 5'8" Weight 218.00 lb W/O Shoes Heart Rate 78 /min BP Systolic Sitting 138 mmHg Lue Reg Cuff BP Diastolic Sitting 88 mmHg Lue Reg Cuff BP Systolic Standing 144 mmHg Home Unit BP Diastolic Standing 85 mmHg Home Unit BMI (Body Mass Index) 33.1 kg/m2 Ejection Fraction 5-55% ECHO 12/23/16 05/13/2017 Height 68 inches 5'8" Weight 213.00 lb No shoes Heart Rate 60 /min BP Systolic Sitting 112 mmHg Rue lrg cuff BP Diastolic Sitting 70 mmHg Rue lrg cuff Respiratory Rate 15 /min BMI (Body Mass Index) 32.4 kg/m2 Ejection Fraction 50-55% 12/23/2016-echo 04/06/2017 Weight 217.12 lb Heart Rate 95 /min BP Systolic Sitting 118 mmHg BP Diastolic Sitting 72 mmHg O2 % BldC Oximetry 93 % 03/09/2017 Height 68 inches 5'8" Weight 217.75 lb with shoes Heart Rate 70 /min BP Systolic Sitting 128 mmHg LA, reg cuff BP Diastolic Sitting 84 mmHg LA, reg cuff BP Systolic Standing 111 mmHg la repeat sitting BP Diastolic Standing 73 mmHg la repeat sitting BMI (Body Mass Index) 33.1 kg/m2 01/05/2017 Height 68 inches 5'8" Weight 209.50 lb Heart Rate 60 /min BP Systolic Sitting 104 mmHg LA, reg BP Diastolic Sitting 74 mmHg LA, reg BP Systolic Standing 138 mmHg la repeat sitting BP Diastolic Standing 81 mmHg la repeat sitting BMI (Body Mass Index) 31.9 kg/m2 Ejection Fraction 50%-55% 12/23/16 echo 11/13/2016 Height 68 inches 5'8" Weight 215.00 lb with shoes Heart Rate 74 /min BP Systolic Sitting 100 mmHg Rue lg cuff BP Diastolic Sitting 70 mmHg Rue lg cuff BP Systolic Standing 112 mmHg Rue lg cuff BP Diastolic Standing 70 mmHg Rue lg cuff Respiratory Rate 17 /min BMI (Body Mass Index) 32.7 kg/m2 Ejection Fraction 30-35% date 11/04/16 Echo 11/10/2016 Height 68 inches 5'8" Weight 214.00 lb Heart Rate 76 /min BP Systolic Sitting 112 mmHg BP Diastolic Sitting 80 mmHg Body Temperature 97.3 F O2 % BldC Oximetry 94 % BMI (Body Mass Index) 32.5 kg/m2 07/09/2015 Weight 220.00 lb Heart Rate 53 /min BP Systolic Sitting 142 mmHg BP Diastolic Sitting 94 mmHg Body Temperature 97.7 F 05/29/2015 Weight 216.00 lb Heart Rate 88 /min BP Systolic Sitting 128 mmHg BP Diastolic Sitting 84 mmHg Body Temperature 97.7 F O2 % BldC Oximetry 97 % 05/09/2015 Height 68 inches 5'8" Weight 214.50 lb Heart Rate 96 /min BP Systolic Sitting 124 mmHg BP Diastolic Sitting 80 mmHg Body Temperature 97.0 F O2 % BldC Oximetry 97 % BMI (Body Mass Index) 32.6 kg/m2 04/29/2015 Height 68 inches 5'8" Weight 215.00 lb Heart Rate 78 /min BP Systolic Sitting 126 mmHg BP Diastolic Sitting 84 mmHg Respiratory Rate 15 /min Body Temperature 98.6 F O2 % BldC Oximetry 97 % BMI (Body Mass Index) 32.7 kg/m2 01/22/2014 Height 68 inches 5'8" Weight 216.00 lb Heart Rate 62 /min irregular BP Systolic 142 mmHg LA reg BP Diastolic 90 mmHg LA reg BMI (Body Mass Index) 32.8 kg/m2 09/20/2013 Height 68 inches 5'8" Weight 216.50 lb Heart Rate 72 /min BP Systolic Sitting 124 mmHg BP Diastolic Sitting 66 mmHg Respiratory Rate 15 /min BMI (Body Mass Index) 32.9 kg/m2 07/26/2013 Weight 217.00 lb Heart Rate 68 /min irregular BP Systolic Sitting 148 mmHg LA reg cuff BP Diastolic Sitting 100 mmHg LA reg cuff BP Systolic Standing 134 mmHg LA BP Diastolic Standing 100 mmHg LA BP Systolic Recheck 130 mmHg after sitting 10 min BP Diastolic Recheck 92 mmHg after sitting 10 min Respiratory Rate 16 /min 07/04/2013 Height 68 inches 5'8" Weight 218.12 lb with shoes Heart Rate 70 /min 66 sit and stand HR irreg BP Systolic Sitting 100 mmHg LA reg cuff BP Diastolic Sitting 68 mmHg LA reg cuff BP Systolic Standing 102 mmHg LA reg cuff BP Diastolic Standing 68 mmHg LA reg cuff Respiratory Rate 16 /min BMI (Body Mass Index) 33.2 kg/m2 05/16/2013 Height 67.5 inches 5'7.50" Weight 219.00 lb Heart Rate 76 /min BP Systolic Sitting 120 mmHg BP Diastolic Sitting 90 mmHg BMI (Body Mass Index) 33.8 kg/m2 11/22/2012 Height 67.5 inches 5'7.50" Weight 218.00 lb Heart Rate 80 /min BP Systolic Sitting 138 mmHg BP Diastolic Sitting 98 mmHg BMI (Body Mass Index) 33.6 kg/m2 09/13/2012 Height 67.5 inches 5'7.50" Heart Rate 72 /min irregular BP Systolic Sitting 114 mmHg BP Diastolic Sitting 80 mmHg 03/21/2012 Height 67.5 inches 5'7.50" Weight 217.50 lb Heart Rate 80 /min BP Systolic Sitting 102 mmHg BP Diastolic Sitting 78 mmHg BMI (Body Mass Index) 33.6 kg/m2 03/09/2012 Height 67.5 inches 5'7.50" Weight 217.50 lb Heart Rate 80 /min BP Systolic Sitting 114 mmHg BP Diastolic Sitting 74 mmHg BMI (Body Mass Index) 33.6 kg/m2 02/22/2012 Height 67.5 inches 5'7.50" Weight 216.00 lb Heart Rate 60 /min irregular BP Systolic Sitting 98 mmHg irregular BP Diastolic Sitting 58 mmHg irregular BMI (Body Mass Index) 33.3 kg/m2 01/29/2011 Height 67.5 inches 5'7.50" Weight 220.25 lb Heart Rate 72 /min BP Systolic Sitting 120 mmHg BP Diastolic Sitting 72 mmHg BMI (Body Mass Index) 34.0 kg/m2 09/23/2010 Weight 220.00 lb Heart Rate 68 /min BP Systolic Sitting 112 mmHg BP Diastolic Sitting 76 mmHg Body Temperature 97.6 F lt ear 12/30/2009 Weight 215.00 lb Heart Rate 80 /min BP Systolic Sitting 170 mmHg BP Diastolic Sitting 90 mmHg 10/24/2008 Height 218 inches 18'2" Heart Rate 64 /min BP Systolic Sitting 152 mmHg BP Diastolic Sitting 100 mmHg 09/14/2008 Height 68 inches 5'8" Weight 215.00 lb Heart Rate 68 /min BP Systolic Sitting 160 mmHg BP Diastolic Sitting 100 mmHg BMI (Body Mass Index) 32.7 kg/m2 04/21/2007 Height 68 inches 5'8" Weight 213.00 lb Heart Rate 57 /min BP Systolic Sitting 150 mmHg BP Diastolic Sitting 90 mmHg BMI (Body Mass Index) 32.4 kg/m2 Results Test Date Test Result H/L Range Note Lipid Panel - JF 11/30/2017 Creatine Kinase(CK) 103 U/L 10-223 Comp Metabolic Panel 11/30/2017 Sodium 141 mmol/L 135-145 Potassium 4.6 mmol/L 3.5-5.0 Chloride 104 mmol/L 101-111 Co2 Carbon Dioxide 29 mmol/L 22-32 Anion Gap 8 mmol/L 2-11 Glucose 94 mg/dL 70-100 Blood Urea Nitrogen 21 mg/dL 6-24 Creatinine 1.21 mg/dL High 0.67-1.17 BUN/Creatinine Ratio 17.4 8-20 Calcium 9.2 mg/dL 8.6-10.3 Total Protein 7.0 g/dL 6.4-8.9 Albumin 4.3 g/dL 3.2-5.2 Globulin 2.7 g/dL 2-4 Albumin/Globulin Ratio 1.6 1-3 Total Bilirubin 1.00 mg/dL 0.2-1.0 Alkaline Phosphatase 61 U/L 34-104 Alt 21 U/L 7-52 Ast 18 U/L 13-39 Egfr Non- 58.8 >60 Egfr 71.1 >60 1 Lipid Profile (Trig/Chol/HDL) 11/30/2017 Triglycerides 267 mg/dL 2 Cholesterol 236 mg/dL 3 HDL Cholesterol 42.1 mg/dL 4 LDL Cholesterol 141 mg/dL 5 Laboratory test 05/20/2017 Surgical Pathology SEE RESULT BELOW 6 finding Rapid Influenza A & B 04/26/2017 Influenza A Molecular NEGATIVE Negative 7 Molecular Influenza B Molecular NEGATIVE Negative Inr/Protime 11/03/2016 Inr 1.05 0.89-1.11 Laboratory test 11/03/2016 D Dimer Quantitative 272 ng/mL High Less Than 230 8 finding CBC Auto Diff 11/03/2016 White Blood Count 6.9 10^3/uL 3.5-10.8 Red Blood Count 5.11 10^6/uL 4.0-5.4 Hemoglobin 15.1 g/dL 14.0-18.0 Hematocrit 46 % 42-52 Mean Corpuscular Volume 90 fL 80-94 Mean Corpuscular Hemoglobin 30 pg 27-31 Mean Corpuscular HGB Conc 33 g/dL 31-36 Red Cell Distribution Width 14 % 10.5-15 Platelet Count 179 10^3/uL 150-450 Mean Platelet Volume 8 um3 7.4-10.4 Abs Neutrophils 4.8 10^3/uL 1.5-7.7 Abs Lymphocytes 1.4 10^3/uL 1.0-4.8 Abs Monocytes 0.6 10^3/uL 0-0.8 Abs Eosinophils 0.1 10^3/uL 0-0.6 Abs Basophils 0.1 10^3/uL 0-0.2 Abs Nucleated RBC 0.01 10^3/uL Granulocyte % 69.2 % 38-83 Lymphocyte % 19.7 % Low 25-47 Monocyte % 8.0 % 1-9 Eosinophil % 2.1 % 0-6 Basophil % 1.0 % 0-2 Nucleated Red Blood Cells % 0.1 Laboratory test finding 11/03/2016 Lactic Acid 1.5 mmol/L 0.5-2.0 9 B-Type Natriuretic Peptide BNP 339 pg/mL High 10 Comp Metabolic Panel 11/03/2016 Sodium 138 mmol/L 133-145 Potassium 4.2 mmol/L 3.5-5.0 Chloride 106 mmol/L 101-111 Co2 Carbon Dioxide 24 mmol/L 22-32 Anion Gap 8 mmol/L 2-11 Glucose 132 mg/dL High 70-100 Blood Urea Nitrogen 26 mg/dL High 6-24 Creatinine 1.28 mg/dL High 0.67-1.17 BUN/Creatinine Ratio 20.3 High 8-20 Calcium 8.9 mg/dL 8.6-10.3 Total Protein 6.3 g/dL Low 6.4-8.9 Albumin 3.9 g/dL 3.2-5.2 Globulin 2.4 g/dL 2-4 Albumin/Globulin Ratio 1.6 1-3 Total Bilirubin 1.60 mg/dL High 0.2-1.0 Alkaline Phosphatase 56 U/L 34-104 Alt 30 U/L 7-52 Ast 24 U/L 13-39 Egfr Non- 55.2 >60 Egfr 71.0 >60 11 Laboratory test finding 11/03/2016 Troponin-I (TnI) 0.03 ng/mL <0.04 Magnesium 2.0 mg/dL 1.9-2.7 Blood Culture SEE RESULT BELOW 12 Laboratory test finding 06/28/2015 Lactic Acid 2.3 mmol/L High 0.5-2.0 13 Comp Metabolic Panel 06/28/2015 Sodium 136 mmol/L 133-145 Chloride 103 mmol/L 101-111 Co2 Carbon Dioxide 24 mmol/L 22-32 Glucose 123 mg/dL High 70-100 Blood Urea Nitrogen 22 mg/dL 6-24 Creatinine 1.32 mg/dL High 0.67-1.17 BUN/Creatinine Ratio 16.7 8-20 Calcium 9.0 mg/dL 8.6-10.3 Total Protein 6.7 g/dL 6.4-8.9 Albumin 4.1 g/dL 3.2-5.2 Globulin 2.6 g/dL 2-4 Albumin/Globulin Ratio 1.6 1-3 Total Bilirubin 0.70 mg/dL 0.2-1.0 Alkaline Phosphatase 64 U/L 34-104 Alt 37 U/L 7-52 Egfr Non- 53.5 >60 Egfr 68.8 >60 14 Potassium 4.1 mmol/L 3.5-5.0 Anion Gap 9 mmol/L 2-11 Ast 28 U/L 13-39 CBC Auto Diff 06/28/2015 White Blood Count 5.6 10^3/uL 3.5-10.8 Red Blood Count 5.13 10^6/uL 4.0-5.4 Hemoglobin 15.3 g/dL 14.0-18.0 Hematocrit 46 % 42-52 Mean Corpuscular Volume 89 fL 80-94 Mean Corpuscular Hemoglobin 30 pg 27-31 Mean Corpuscular HGB Conc 34 g/dL 31-36 Red Cell Distribution Width 13 % 10.5-15 Platelet Count 174 10^3/uL 150-450 Mean Platelet Volume 8 um3 7.4-10.4 Abs Neutrophils 3.2 10^3/uL 1.5-7.7 Abs Lymphocytes 1.5 10^3/uL 1.0-4.8 Abs Monocytes 0.5 10^3/uL 0-0.8 Abs Eosinophils 0.2 10^3/uL 0-0.6 Abs Basophils 0.1 10^3/uL 0-0.2 Abs Nucleated RBC 0.01 10^3/uL Granulocyte % 57.8 % 38-83 Lymphocyte % 27.4 % 25-47 Monocyte % 9.8 % High 1-9 Eosinophil % 3.7 % 0-6 Basophil % 1.3 % 0-2 Nucleated Red Blood Cells % 0.3 Inr/Protime 06/28/2015 Inr 1.96 High 0.89-1.11 Laboratory test finding 06/28/2015 Troponin-I (TnI) 0.01 ng/mL <0.03 15 B-Type Natriuretic Peptide BNP 127 pg/mL High 16 Protime W/ Inr 05/08/2015 Inr 1.45 High 0.89-1.11 CBC Auto Diff 05/04/2015 White Blood Count 6.2 10^3/uL 3.5-10.8 Red Blood Count 5.36 10^6/uL 4.0-5.4 Hemoglobin 15.7 g/dL 14.0-18.0 Hematocrit 48 % 42-52 Mean Corpuscular Volume 89 fL 80-94 Mean Corpuscular Hemoglobin 29 pg 27-31 Mean Corpuscular HGB Conc 33 g/dL 31-36 Red Cell Distribution Width 13 % 10.5-15 Platelet Count 201 10^3/uL 150-450 Mean Platelet Volume 8 um3 7.4-10.4 Abs Neutrophils 3.5 10^3/uL 1.5-7.7 Abs Lymphocytes 1.5 10^3/uL 1.0-4.8 Abs Monocytes 0.8 10^3/uL 0-0.8 Abs Eosinophils 0.3 10^3/uL 0-0.6 Abs Basophils 0 10^3/uL 0-0.2 Abs Nucleated RBC 0.01 10^3/uL Granulocyte % 56.8 % 38-83 Lymphocyte % 25.1 % 25-47 Monocyte % 13.1 % High 1-9 Eosinophil % 4.7 % 0-6 Basophil % 0.3 % 0-2 Nucleated Red Blood Cells % 0.2 Inr/Protime 05/04/2015 Inr 1.03 0.89-1.11 Laboratory test finding 05/04/2015 Partial Thrombo Time 36.1 seconds 26.0 -36.3 PTT Comp Metabolic Panel 05/04/2015 Sodium 137 mmol/L 133-145 Potassium 3.9 mmol/L 3.5-5.0 Chloride 106 mmol/L 101-111 Co2 Carbon Dioxide 25 mmol/L 22-32 Anion Gap 6 mmol/L 2-11 Glucose 87 mg/dL 70-100 Blood Urea Nitrogen 22 mg/dL 6-24 Creatinine 1.25 mg/dL High 0.67-1.17 BUN/Creatinine Ratio 17.6 8-20 Calcium 8.8 mg/dL 8.6-10.3 Total Protein 6.6 g/dL 6.4-8.9 Albumin 4.0 g/dL 3.2-5.2 Globulin 2.6 g/dL 2-4 Albumin/Globulin Ratio 1.5 1-3 Total Bilirubin 0.60 mg/dL 0.2-1.0 Alkaline Phosphatase 56 U/L 34-104 Alt 34 U/L 7-52 Ast 23 U/L 13-39 Egfr Non- 56.9 >60 Egfr 73.2 >60 17 Laboratory test finding 05/04/2015 Troponin-I (TnI) 0.01 ng/mL <0.03 18 TSH (Thyroid Stim Horm) 0.99 ?IU/mL 0.34-5.60 Lipid Profile (Trig/Chol/HDL) 09/20/2012 Triglycerides 254 mg/dL High 40- 200 Cholesterol 239 mg/dL High Less than 200 HDL Cholesterol 39 mg/dL Low 40-60 19 Cholesterol/HDL Ratio 6.1 Average High 1-4.44 LDL Cholesterol 149.2 High Less Than 100 20 Laboratory test finding 09/20/2012 Ast 25 U/L 12-42 21 Alt 25 U/L 14-54 22 CBC Auto Diff 02/22/2012 White Blood Count 7.2 10^3/uL 4.8-10.8 Red Blood Count 5.35 10^6/uL 4.0-5.4 Hemoglobin 16.2 g/dL 14.0-18.0 Hematocrit 48 % 42-52 Mean Corpuscular Volume 90 fL 80-94 Mean Corpuscular Hemoglobin 30 pg 27-31 Mean Corpuscular HGB Conc 33 g/dL 31-36 Red Cell Distribution Width 13 % 10.5-15 Platelet Count 204 10^3/uL 150-450 Mean Platelet Volume 8 um3 7.4-10.4 Abs Neutrophils 4.5 10^3/uL 1.5-7.7 Abs Lymphocytes 1.7 10^3/uL 1.0-4.8 Abs Monocytes 0.8 10^3/uL 0-0.8 Abs Eosinophils 0.2 10^3/uL 0-0.6 Abs Basophils 0.1 10^3/uL 0-0.2 Abs Nucleated RBC 0.01 10^3/uL Granulocyte % 62.1 % 38-83 Lymphocyte % 23.4 % Low 25-47 Monocyte % 11.1 % High 1-9 Eosinophil % 2.2 % 0-6 Basophil % 1.2 % 0-2 Nucleated Red Blood Cells % 0.1 Comp Metabolic Panel 02/22/2012 Sodium 140 mmol/L 133-145 Potassium 4.8 mmol/L 3.5-5.0 Chloride 105 mmol/L 101-111 Co2 Carbon Dioxide 27.0 mmol/L 22-32 Anion Gap 8.0 mmol/L 2-11 Glucose 82 mg/dL 70-100 Blood Urea Nitrogen 23 mg/dL 6-24 Creatinine 1.50 mg/dL High 0.50-1.40 BUN/Creatinine Ratio 15.3 8-20 Calcium 9.8 mg/dL 8.1-9.9 Total Protein 7.0 g/dL 6.2-8.1 Albumin 4.3 g/dL 3.2-5.2 Globulin 2.7 g/dL 2-4 Albumin/Globulin Ratio 1.6 1-3 Total Bilirubin 1.0 mg/dL 0.4-1.5 Alkaline Phosphatase 55 U/L 30-110 Alt 32 U/L 14-54 Ast 24 U/L 12-42 Egfr Non- 46.7 >60 Egfr 60.0 >60 23 Laboratory test finding 02/22/2012 TSH (Thyroid Stimulating 2.41 miu/mL 0.34-5.60 Horm) Laboratory test finding 09/23/2010 Erythrocyte Sed Rate 3 MM/HR 0-40 CBC Auto Diff 09/23/2010 White Blood Count 7.1 CUMM 4.8-10.8 Red Cell Count 4.92 CUMM 4.6-6.2 Hemoglobin 15.1 g/dL 14.0-18.0 Hematocrit 44 % 42-52 Mean Corpuscular Volume 89 um3 80-94 Mean Corpuscular Hemoglob 31 pg 27-31 Mean Corpuscular HGB Cone 34 g/dL 32-36 Redcell Distribution WDTH 12 % 10.5-15 Platelet Count 205 CUMM 150-450 Mean Platelet Volume 7.6 um3 7.4-10.4 Gran % 60.9 % 38-83 Lymph % 24.7 % Low 25-47 Mononuclear % 10.7 % High 1-9 Eosinophil % 2.9 % 0-6 Basophil % 0.8 % 0-2 Abs Lymphs 1.7 1.0-4.8 Abs Mononuclear 0.8 0-0.8 Absolute Neutrophil Count 4.3 1.5-7.7 Abs Eosinophils 0.2 0-0.6 Abs Basophils 0.1 0-0.2 Laboratory test finding 12/26/2009 PSA,Diagnostic 0.0 NG/ML 0-4 24 Hemoglobin A1c 5.5 % Less Than 6.0 25 CBC With Electronic Diff 12/26/2009 White Blood Count 5.4 CUMM 4.8-10.8 Red Cell Count 5.18 CUMM 4.6-6.2 Hemoglobin 15.9 g/dL 14.0-18.0 Hematocrit 46 % 42-52 Mean Corpuscular Volume 89 um3 80-94 Mean Corpuscular Hemoglob 31 pg 27-31 Mean Corpuscular HGB Cone 35 g/dL 32-36 Redcell Distribution WDTH 13 % 10.5-15 Platelet Count 205 CUMM 150-450 Mean Platelet Volume 6.4 um3 Low 7.4-10.4 Gran % 57.4 % 38-83 Lymph % 29.2 % 25-47 Mononuclear % 9.4 % High 1-9 Eosinophil % 3.3 % 0-6 Basophil % 0.7 % 0-2 Abs Lymphs 1.6 1.0-4.8 Abs Mononuclear 0.5 0-0.8 Absolute Neutrophil Count 3.1 1.5-7.7 Abs Eosinophils 0.2 0-0.6 Abs Basophils 0 0-0.2 Lipid Profile (Trig/Chol/HDL) 12/26/2009 Triglyceride 190 mg/dL 40-200 Cholesterol 236 mg/dL High Less Than 200 26 High Density Lipoprotein 39 mg/dL Low 40-60 27 Cholesterol/HDL Ratio 6.05 AVERAGE High 1-4.97 Low Density Lipoprotein 159 mg/dL High Less Than 100 28 Comp Metabolic Panel 12/26/2009 Sodium 140 mmol/L 135-145 Potassium 4.4 mmol/L 3.5-5.0 Chloride 105 mmol/L 101-111 Co2 (Carbon Dioxide) 29.0 mmol/L 22-32 Anion Gap 6.0 mmol/L 2-11 29 Glucose 107 mg/dL High 70-100 30 BUN 21 mg/dL 6-24 Creatinine 1.01 mg/dL 0.50-1.40 One Over Creatinine 0.90 BUN/Creatinine Ratio 20.8 High 8-20 Calcium 9.2 mg/dL 8.1-9.9 Total Protein 7.4 GM/DL 6.2-8.1 Albumin 4.3 GM/DL 3.2-5.2 Globulin 3.1 GM/DL 2-4 Albumin/Globulin Ratio 1.4 1-3 Bilirubin Total 1.2 mg/dL 0.4-1.5 31 Alkaline Phosphatase 64 U/L 39-117 Alt (SGPT) 35 U/L 17-63 Ast (Sgot) 26 U/L 12-42 eGFR Non- 78.8 > 60 eGFR 95.3 > [address] Goel's Lab Panel 12/26/2009 TSH 2.38 MIU/ML 0.34-5.60 Protime 06/27/2007 Protime 18.1 High 10.9-13.3 Inr 2.25 33 Protime 06/21/2007 Protime 22.3 High 10.9-13.3 Inr 3.42 34 CBC With Electronic Diff 04/22/2007 White Blood Count 5.8 CUMM 4.8-10.8 35 Abs Basophils 0 0-0.2 35 Abs Eosinophils 0.3 0-0.6 35 Absolute Neutrophil Count 3.4 1.5-7.7 35 Abs Lymphs 1.5 1.0-4.8 35 Abs Mononuclear 0.6 0-0.8 35 Basophil % 0.8 % 0-2 35 Hematocrit 46 % 42-52 35 Hemoglobin 15.5 g/dL 14.0-18.0 35 Eosinophil % 5.0 % 0-6 35 Gran % 58.3 % 38-83 35 Lymph % 26.0 % 20-45 35 Mean Corpuscular HGB Cone 34 g/dL 32-36 35 Mean Corpuscular Hemoglob 29 pg 27-31 35 Mean Corpuscular Volume 85 um3 80-94 35 Mean Platelet Volume 7.2 um3 Low 7.4-10.4 35 Mononuclear % 9.9 % High 1-9 35 Platelet Count 216 CUMM 150-450 35 Red Cell Count 5.40 CUMM 4.6-6.2 35 Redcell Distribution WDTH 12 % 10.5-15 35 Comp Metabolic Panel 04/22/2007 One Over Creatinine 1.00 35 Anion Gap 6.0 mmol/L 2-11 35, 36 Albumin/Globulin Ratio 1.6 1-3 35 Albumin 4.0 GM/DL 3.2-5.2 35 Alkaline Phosphatase 64 U/L 39-117 35 Alt (SGPT) 48 U/L 17-63 35 Ast (Sgot) 28 U/L 12-42 35 BUN 16 mg/dL 6-24 35 Calcium 8.7 mg/dL 8.7-10.2 35 Chloride 104 mmol/L 101-111 35 Co2 (Carbon Dioxide) 28.0 mmol/L 22-32 35 Globulin 2.5 GM/DL 2-4 35 Glucose 104 mg/dL 70-105 35 Potassium 4.3 mmol/L 3.5-5.0 35 Sodium 138 mmol/L 135-145 35 Bilirubin Total 0.9 mg/dL 0.4-1.5 35 Total Protein 6.5 GM/DL 6.2-8.1 35 BUN/Creatinine Ratio 16.0 8-20 35 Creatinine 1.0 mg/dL 0.5-1.4 35 Lipid Profile 04/22/2007 Cholesterol/HDL Ratio 6.97 AVERAGE High 1-4.97 35 (Trig/Chol/HDL) Cholesterol 209 mg/dL High Less Than 200 35, 37 Triglyceride 227 mg/dL High 40-200 35 High Density Lipoprotein 30 mg/dL Low 40-60 35, 38 Low Density Lipoprotein 134 mg/dL High Less Than 100 35, 39 Laboratory test finding 04/22/2007 PSA Screening 0.14 NG/ML 0-4 35, 40 TSH 2.02 MIU/ML 0.34-5.60 35 1 Because ethnic data is not always readily available, this report includes an eGFR for both -Americans and non- Americans. The National Kidney Disease Education Program (NKDEP) does not endorse the use of the MDRD equation for patients that are not between the ages of 18 and 70, are , have extremes of body size, muscle mass, or nutritional status, or are non- or non-. According to the National Kidney Foundation, irrespective of diagnosis, the stage of the disease is based on the level of kidney function: Stage Description GFR(mL/min/1.73 m(2)) 1 Kidney damage with normal or decreased GFR 90 2 Kidney damage with mild decrease in GFR 60-89 3 Moderate decrease in GFR 30-59 4 Severe decrease in GFR 15-29 5 Kidney failure <15 (or dialysis) 2 Desirable: <150 Borderline High: 150-199 High: 200-499 Very High: >500 3 Desirable: <200 Borderline High: 200-239 High: >239 4 Low: <40 Desirable: 40-60 High: >60 5 Desirable: <100 Near Optimal: 100-129 Borderline High: 130-159 High: 160-189 Very High: >189 6 SEE RESULT BELOW Name: ROSS STEWART : [address]: Jovanna Montoya DO Acct: [id number] Unit: [id number] AGE: 72 Location: ENDO Re05/20/17 SEX: M Status: REG REF SPEC: [id number] THAIS: 05/20/17-[address]: Jovanna Montoya DO REQ: [id number] RECD: 05/20/17-1421 STATUS: ALON MATT DR: Tyrel Goel III, MD _ ORDERED: LEVEL 4/3 FINAL DIAGNOSIS 1. Colon, ascending, biopsy: -- Tubular adenomas. -- No high grade dysplasia or malignancy. 2. Colon, descending, biopsy: -- Tubular adenomas. -- No high grade dysplasia or malignancy. 3. Colon, sigmoid at 30 cm, biopsy: -- Tubular adenomas. -- No high grade dysplasia or malignancy. CLINICAL HISTORY History of polyps, rectal bleeding PRE-OPERATIVE DIAGNOSIS POST-OPERATIVE DIAGNOSIS 6 mm polyps x10 ascending colon; 6 mm polyp x3 descending colon; 2 cm, 5 cm and 5 cm polyps sigmoid at 30 cm; sigmoid diverticulosis; prominent hemorrhoids. Conclusions/ Plan: 1 year GROSS DESCRIPTION 1. The specimen is received in formalin labeled, Ascending Colon Polyps, and consists of a 1.3 x 0.9 by up to 0.3 cm aggregate of mcclure-pink irregular to polypoid soft tissue fragments which is submitted entirely in one cassette. 2. The specimen is received in formalin labeled, Descending Colon Polyps, and consists of a 1.0 x 0.7 by up to 0.3 cm aggregate of mcclure-red irregular to polypoid soft tissue fragments CONTINUED ON NEXT PAGE DEPARTMENT OF PATHOLOGY, [address] [place] [address] Luis Cope M.D. Director [facility] # [id number] RUN DATE: 05/21/17 [facility] LAB LIVE PAGE 2 Patient: ROSS STEWART [id number] (Continued) GROSS DESCRIPTION (Continued) GROSS DESCRIPTION (Continued) which is submitted entirely in one cassette. 3. The specimen is received in formalin labeled, Sigmoid Colon Polyps at 30 cm, and consists of a 1.9 x 1.8 by up to 0.6 cm aggregate of mcclure-pink irregular to polypoid soft tissue fragments, the largest of which measures up to 0.8 cm. The two largest fragments are differentially inked, sectioned and the specimen is entirely submitted in cassettes A and B to include largest fragments in cassette B. Signed (signature on file) Amy Cheung MD [id number] END OF REPORT DEPARTMENT OF PATHOLOGY, [address] [place] [address] Luis Cope M.D. Director [facility] # [id number] Hvac Sales Representative: [id number] Please note: The following may produce a false positive D Dimer test: - Rheumatoid factor greater than 60 IU/ml - Plasma hemoglobin greater than 0.05 gm/dl - Bilirubin greater than 50 mg/dl - Lipids greater than 1000 mg/dl - FDP greater than 20 ug/ml 9 [facility] Severe Sepsis and Septic Shock Management Bundle Measure requires all lactic acids initially measuring >2.0 mmol/L be repeated. 10 >100 to <200 pg/mL: likely compensated congestive heart failure (CHF) 200 to 400 pg/mL: likely moderate CHF >400 pg/mL: likely moderate to severe CHF 11 Because ethnic data is not always readily available, this report includes an eGFR for both -Americans and non- Americans. The National Kidney Disease Education Program (NKDEP) does not endorse the use of the MDRD equation for patients that are not between the ages of 18 and 70, are , have extremes of body size, muscle mass, or nutritional status, or are non- or non-. According to the National Kidney Foundation, irrespective of diagnosis, the stage of the disease is based on the level of kidney function: Stage Description GFR(mL/min/1.73 m(2)) 1 Kidney damage with normal or decreased GFR 90 2 Kidney damage with mild decrease in GFR 60-89 3 Moderate decrease in GFR 30-59 4 Severe decrease in GFR 15-29 5 Kidney failure <15 (or dialysis) 12 SEE RESULT BELOW Name: ROSS STEWART : [address]: Genie Santos MD Acct: [id number] Unit: [id number] AGE: 71 Location: [place] [address] Re11/03/16 SEX: M Status: ADM Sandy SPEC: [id number] THAIS: 11/03/[address]: Tyrel Devine MD REQ: [id number] RECD: 11/03/16 STATUS: RES VERNELL DR: Tyrel Goel III, MD _ SOURCE: BLOOD,VENO SPDESC: ORDERED: Blood Cult Procedure Result Reported Site Aerobic Culture Bottle Preliminary 11/04/161245 ML No Growth Day 1 Anaerobic Culture Bottle Preliminary 11/04/161245 ML No Growth Day 1 * ML - MAIN LAB ([facility]) . END OF REPORT * ML=Testing performed at Main Lab DEPARTMENT OF PATHOLOGY, [address] [place] [address] Luis Cope M.D. Director [facility] # [id number] 13 Critical Result LACT:2.3 Called to PINEDA Valentin at: 18:11:54 by:[email or web address] Read back by:PINEDA BARDALES Severe Sepsis and Septic Shock Management Bundle Measure requires all lactic acids initially measuring >2.0 mmol/L be repeated. 14 Because ethnic data is not always readily available, this report includes an eGFR for both -Americans and non- Americans. The National Kidney Disease Education Program (NKDEP) does not endorse the use of the MDRD equation for patients that are not between the ages of 18 and 70, are , have extremes of body size, muscle mass, or nutritional status, or are non- or non-. According to the National Kidney Foundation, irrespective of diagnosis, the stage of the disease is based on the level of kidney function: Stage Description GFR(mL/min/1.73 m(2)) 1 Kidney damage with normal or decreased GFR 90 2 Kidney damage with mild decrease in GFR 60-89 3 Moderate decrease in GFR 30-59 4 Severe decrease in GFR 15-29 5 Kidney failure <15 (or dialysis) 15 Reference Range and Interpretation: TnI (ng/mL) Interpretation Less Than 0.03 ng/mL Not supportive of diagnosis of ME 0.03 - 0.50 ng/mL Indeterminate: suggest serial studies if clinically indicated. Greater than 0.5 ng/mL Consistent with diagnosis of ME 16 >100 to <200 pg/mL: likely compensated congestive heart failure (CHF) 200 to 400 pg/mL: likely moderate CHF >400 pg/mL: likely moderate to severe CHF 17 Because ethnic data is not always readily available, this report includes an eGFR for both -Americans and non- Americans. The National Kidney Disease Education Program (NKDEP) does not endorse the use of the MDRD equation for patients that are not between the ages of 18 and 70, are , have extremes of body size, muscle mass, or nutritional status, or are non- or non-. According to the National Kidney Foundation, irrespective of diagnosis, the stage of the disease is based on the level of kidney function: Stage Description GFR(mL/min/1.73 m(2)) 1 Kidney damage with normal or decreased GFR 90 2 Kidney damage with mild decrease in GFR 60-89 3 Moderate decrease in GFR 30-59 4 Severe decrease in GFR 15-29 5 Kidney failure <15 (or dialysis) 18 Reference Range and Interpretation: TnI (ng/mL) Interpretation Less Than 0.03 ng/mL Not supportive of diagnosis of ME 0.03 - 0.50 ng/mL Indeterminate: suggest serial studies if clinically indicated. Greater than 0.5 ng/mL Consistent with diagnosis of ME 19 HDL Interpretation: Undesirable: High Risk: Less than 40 mg/dL Desirable: Low Risk: Greater than 60 mg/dL 20 LDL Interpretation: Low Risk Optimal Level: LDL Less than 100 mg/dL Near or Above Optimal: LDL 100-129 mg/dL Borderline High Risk: LDL 130-159 mg/dL High Risk: LDL 160-189 mg/dL Very High Risk: LDL Greater than 189 mg/dL 21 FASTING 22 FASTING 23 Because ethnic data is not always readily available, this report includes an eGFR for both -Americans and non- Americans. The National Kidney Disease Education Program (NKDEP) does not endorse the use of the MDRD equation for patients that are not between the ages of 18 and 70, are , have extremes of body size, muscle mass, or nutritional status, or are non- or non-. According to the National Kidney Foundation, irrespective of diagnosis, the stage of the disease is based on the level of kidney function: Stage Description GFR(mL/min/1.73 m(2)) 1 Kidney damage with normal or decreased GFR 90 2 Kidney damage with mild decrease in GFR 60-89 3 Moderate decrease in GFR 30-59 4 Severe decrease in GFR 15-29 5 Kidney failure <15 (or dialysis) 24 * SERUM LEVELS OF PSA MEASURED USING THE jaeyos ACCESS HYBRITECH IMMUNOASSAY SHOULD NOT BE INTERPRETED ABSOLUTE EVIDENCE OF THE PRESENCE OR ABSENCE OF DISEASE. THE PSA VALUE SHOULD BE USED IN CONJUNCTION WITH OTHER PERTINENT CLINICAL DIAGNOSTIC PROCEDURES. A PSA value in the range of 0.1 to 0.6 ng/ml is indeterminate if being used as an indicator of recurrent or residual disease. . 25 THERAPEUTIC TARGET FOR THE TREATMENT OF DIABETES MELLITUS PATIENTS IS <7% HBA1C, AND IN SELECTIVE PATIENTS <6.0%. PLEASE REFER TO [place] [employer] DIABETIC CARE GUIDELINES FOR FURTHER INFORMATION. 26 CHOLESTEROL INTERPRETATION: Desirable: Less than 200 MG/DL Borderline-High Risk: 200-239 MG/DL High-Risk: 240 MG/DL and over 27 HDL INTERPRETATION: Undesirable: High Risk: Less than 40 MG/DL Desirable: Low Risk: Greater than 60 MG/DL 28 LDL INTERPRETATION: Low Risk Optimal Level: LDL Less than 100 MG/DL Near or Above Optimal: LDL 100-129 MG/DL Borderline High Risk: LDL 130-159 MG/DL High Risk: LDL 160-189 MG/DL Very High Risk: LDL Greater than 189 MG/DL 29 Anion gap measurement may be of limited value in the presence of any alkalosis, especially in a combined acid base disorder. . 30 Note change in reference range as of 09/29/07. The change was based on recommendations from the [place] [employer]. 31 A metabolite of Naproxen, O-desmethylnaproxen, has been shown to interfere with the Jendrassik-Julian method for measuring total bilirubin. Samples from patients who have taken Naproxen have shown spurious elevation in total bilirubin levels. 32 Because ethnic data is not always readily available, this report includes an eGFR for both -Americans and non- Americans. The National Kidney Disease Education Program (NKDEP) does not endorse the use of the MDRD equation for patients that are not between the ages of 18 and 70, are , have extremes of body size, muscle mass, or nutritional status, or are non- or non-. According to the National Kidney Foundation, irrespective of diagnosis, the stage of the disease is based on the level of kidney function: Stage Description GFR(mL/min/1.73 m(2)) 1 Kidney damage with normal or decreased GFR 90 2 Kidney damage with mild decrease in GFR 60-89 3 Moderate decrease in GFR 30-59 4 Severe decrease in GFR 15-29 5 Kidney failure <15 (or dialysis) 33 REMA VALUE=2.01 ( OF 01/14/07 Recommended INR for Patients on Oral Anticoagulants Prophylaxis 2.0 - 3.0 Treatment of thrombosis 2.0 - 3.0 Prevention of embolism 2.0 - 3.0 Prevention of embolism from prosthetic heart valves 2.5 - 3.5 34 REMA VALUE=2.01 ( OF 01/14/07 Recommended INR for Patients on Oral Anticoagulants Prophylaxis 2.0 - 3.0 Treatment of thrombosis 2.0 - 3.0 Prevention of embolism 2.0 - 3.0 Prevention of embolism from prosthetic heart valves 2.5 - 3.5 35 FASTING 36 Anion gap measurement may be of limited value in the presence of any alkalosis, especially in a combined acid base disorder. . 37 Classification: Borderline High . 38 Classification: Low . 39 CALCULATED LDL APPROXIMATES THE VALUE OF A DIRECT LDL MEASUREMENT. Classification: Borderline High . 40 * SERUM LEVELS OF PSA MEASURED USING THE jaeyos ACCESS HYBRITECH IMMUNOASSAY SHOULD NOT BE INTERPRETED ABSOLUTE EVIDENCE OF THE PRESENCE OR ABSENCE OF DISEASE. THE PSA VALUE SHOULD BE USED IN CONJUNCTION WITH OTHER PERTINENT CLINICAL DIAGNOSTIC PROCEDURES. A PSA value in the range of 0.1 to 0.6 ng/ml is indeterminate if being used as an indicator of recurrent or residual disease. . Procedures Date CPT Code Description Status Comment 12/08/2017 05700 EKG Tracing & Interpretation Completed 05/20/2017 09242 Colonoscopy Flexible Remove Completed Tumor/Polyp/Lesion Snare Technique 05/20/2017 78365 Colonoscopy Flexible W/Biopsy Completed 05/20/2017 Colonoscopy Completed 03/09/2017 54708 EKG Tracing & Interpretation Completed 01/17/2017 55677 Holter Monitor Review (24 Completed hr)dr review & interp only 01/14/2017 Diabetic Retinal Eye Exam Completed Document: 01/14/17 - Consult Ophthalmology - Donna 01/12/2017 91452 ECG Monitor/Recording Completed W/Visual Superimposition Scanning 01/12/2017 60186 ECG Monitor/Recording Completed W/Visual Superimposition Scanning 01/05/2017 93385 EKG Tracing & Interpretation Completed 12/23/2016 43662 ECHO Transthoracic, Real-Time Completed 2D With Doppler And Color Flow 11/17/2016 52806 Stress Test Completed 11/17/2016 91902 Myocardial Perfusion Imaging Completed Tomographic (Spect) Multiple Studies 11/13/2016 59714 EKG Tracing & Interpretation Completed 11/04/2016 46726 ECHO Transthorasic Realtime Completed 2D W Doppler & Color Flow Hosp 11/04/2016 09939 EKG, Interpretation Only Completed 05/06/2015 15621 ECHO Transthorasic Realtime Completed 2D W Doppler & Color Flow Hosp 05/05/2015 62262 EKG, Interpretation Only Completed 01/22/2014 48870 EKG Tracing & Interpretation Completed 06/26/2013 85059 Holter Monitoring 24 HR New Completed 05/16/2013 50190 EKG Tracing & Interpretation Completed 09/20/2012 79203 Treadmill Interp/Report Only Completed 09/20/2012 04450 Stress Test Supervsn W/Out Completed I/R 09/13/2012 54009 EKG Tracing & Interpretation Completed 03/01/2012 51429 Color Flow Doppler/Interp & Completed Reprt 03/01/2012 44860 Pulse Completed Wave/Continuous-Interp.RPT 03/01/2012 39940 ECHO Transthorasic Realtime Completed 2D W Doppler & Color Flow Hosp 02/23/2012 34291 EKG Tracing & Interpretation Completed 02/22/2012 98615 EKG Tracing & Interpretation Completed 04/21/2007 18521 EKG Tracing & Interpretation Completed 04/21/2007 78937 EKG Tracing & Interpretation Completed 06/03/2004 Colonoscopy Completed Encounters Type Date Location Provider CPT E/M Dx Office Visit 05/13/2017 [facility] Jessica Meza, N.PYadira 73434 I48.2 3:30p [facility] E78.00 I42.9 I34.0 I10 Office Visit 04/06/2017 1:00p [facility] Internal Medicine Tyrel Goel, 00596 K62.5 Latoya Stone I48.2 E78.00 Office Visit 03/09/2017 3:20p [facility] Alexis Sosa M.D. 19512 I48.2 I42.9 I34.0 I10 E78.00 Office Visit 01/05/2017 2:40p [facility] Alexis Sosa M.D. 01196 I42.9 I34.0 I10 G47.33 I48.2 E78.00 Office Visit 11/13/2016 3:00p [facility] ELAINE Matthew 79943 I10 G47.33 I48.2 I50.20 I34.0 I36.1 I42.9 E78.5 Office Visit 11/10/2016 11:40a [facility] Internal Medicine Tyrel Goel, 53743 I48.2 - Arrowradha Stone I50.20 I10 G47.33 Z23 Office Visit 11/04/2016 8:34p [facility] [address]605 I48.91 Assoc,pc [facility] Hospitalists I50.31 G47.33 Office Visit 11/03/2016 8:33p [facility] 19558 I48.91 Assoc,pc PA Hospitalists I50.31 G47.33 Office Visit 07/09/2015 10:00a [facility] Internal Medicine Tyrel Goel, 00155 R53.81 - Dennis Stone I48.2 I10 G47.33 Z23 Office Visit 05/29/2015 4:00p [facility] Internal Medicine Tyrel Goel, 42579 I63.40 - Dennis Stone I48.2 G47.33 Office Visit 05/09/2015 11:20a [facility] Internal Medicine Tyrel Goel, 42350 I63.40 - Dennis Stone E78.5 I10 I48.2 G47.33 Office Visit 05/06/2015 2:56p [facility]pc Genie Shah, 64115 I63.40 Hospitalists M.DYadira I10 E78.5 I48.91 Office Visit 05/05/2015 3:09p [facility] Ata Sahu, 63652 I63.40 MD Office Visit 05/05/2015 2:55p [facility] Genie Shah, 29342 I63.40 Hospitalists M.D. I10 E78.5 I48.91 Office Visit 05/04/2015 2:53p [facility] Andrea Preston, 86999 I63.40 Assoc, Hospitalists N.P. I10 E78.5 I48.91 Office Visit 04/29/2015 3:20p [facility] [place] [address] J20.9 - [place] Office Visit 01/22/2014 1:40p [facility] Alexis Sosa, 31448 427.31 MDc 401.1 278.00 327.23 Office Visit 09/20/2013 10:30a [facility] ELAINE Matthew 60108 427.31 401.1 278.00 443.89 327.23 Office Visit 07/26/2013 8:30a [facility] ELAINE Matthew 55895 427.31 401.1 278.00 272.4 Office Visit 07/04/2013 2:30p [facility] ELAINE Matthew 14570 427.31 401.1 780.79 278.00 V49.9 443.89 Office Visit 05/16/2013 1:40p [facility] Alexis Sosa, 69838 427.31 M.DYadira 401.1 786.09 272.4 278.00 Office Visit 11/22/2012 2:00p [facility] AT Olivia Dale, [address] [facility] D.OYadira 427.31 786.09 785.1 272.4 Office Visit 09/13/2012 3:00p [facility] Olivia Dale D.O. 84341 786.50 796.2 427.31 272.4 Office Visit 03/21/2012 11:00a [facility] Olivia Dale D.O. 65496 427.31 401.1 272.0 Office Visit 03/09/2012 1:40p [facility] Olivia Dale D.O. 22671 427.31 401.1 272.0 Office Visit 02/22/2012 10:20a [facility] Internal Medicine Tyrel Goel, 95639 401.1 Khadra Collins M.D. 427.31 Office Visit 01/29/2011 2:00p DO Not Use [employer] [facility] Tyrel Goel, [address] [facility] Bertha 401.0 272.0 790.21 V10.46 Office Visit 09/23/2010 1:00p DO Not Use [employer] [facility] Safia Samuels M.D. [address] [facility] Office Visit 12/30/2009 1:00p DO Not Use [employer] [facility] Tyrel Goel, 26625 401.0 [facility] 272.0 V10.46 790.21 V03.82 Office Visit 10/24/2008 11:30a [facility], [address] [facility] M.D. Office Visit 09/14/2008 11:15a [facility], 13754 784.1 [facility].D. 796.2 Office Visit 04/25/2007 8:00a [facility] Alexis Sosa, 10675 786.50 M.D. 401.0 Office Visit 04/21/2007 3:15p [facility], [address] [facility] M.D. 796.2 Plan of Care Future Appointment(s):12/22/2017 8:30 am - Jessica Meza NFernando at [facility]12/16/2017 9:00 am - [facility] Schedule at [facility]2017 11:30 am - Alexis Sosa M.D. at [facility]12/08/2017 - Alexis Sosa M.D.I10 Essential (primary) hypertensionNew Medication: Losartan Potassium 25 mgFollow up:ov Jessica 2-3 hheinI06.00 Pure hypercholesterolemia, mvuddnjcngbF29.0 Nonrheumatic mitral (valve) tjrhxjgdqaoaqQ55.9 Cardiomyopathy, unspecifiedNew Orders:GfheozrxdnjhcxS12.2 Chronic atrial cgdypefpkozqG69.9 Chest pain, unspecifiedNew Orders:Stress Test, Exercise Nuclear
[2017-12-10 09:45] VITALS: BP 125/83
--- NOTE | 2017-12-10 10:41 | RAD ---
Indication: Right shoulder injury. 3 views of the right shoulder demonstrates widening of AC joint. There is no fracture or location. No other bone or joint abnormality is identified. IMPRESSION: AC joint arthritis. No fracture is identified.
--- NOTE | 2017-12-10 10:48 | UC ---
General HPI - HPI Summary HPI Summary: turned to slide out of a tall truck and miss judged height then fell on R should. c/o R shoulder pain and trouble raising his arm. occured 2 days ago. - History of Current Complaint Chief Complaint: UCUpperExtremity Stated Complaint: RIGHT SHOULDER INJURY Time Seen by Provider: 12/10/17 10:21 Hx Obtained From: Patient Onset/Duration: Sudden Onset Timing: Constant Pain Intensity: 10 - Allergy/Home Medications Allergies/Adverse Reactions: Allergies Allergy/AdvReac Type Severity Reaction Status Date / Time hydrocodone Allergy Hives Verified 12/10/17 09:31 lisinopril Allergy Unknown Verified 12/10/17 09:31 Reaction Details oxycodone [From OxyContin] Allergy Hives Verified 12/10/17 09:31 prednisone Allergy Unknown Verified 12/10/17 09:31 Reaction Details Fuxcwua-Csi-Hbx Reductase Allergy Hives Verified 04/26/17 14:56 Inhibitor Home Medications: Home Medications Rivaroxaban TAB(*) [Xarelto 10 mg (*)] 10 mg PO DAILY 12/10/17 [History Confirmed 12/10/17] PMH/Surg Hx/FS Hx/Imm Hx Cardiovascular History: Atrial Fibrillation Neurological History: CVA - Surgical History Surgical History: Yes Surgery Procedure, Year, and Place: Left TKA, 2010, [facility]. PROSTATATECTOMY - Family History Known Family History: Positive: Hypertension, Diabetes, Other - ALZHEIMERS Negative: Cardiac Disease - Social History Occupation: Employed Full-time Alcohol Use: Rare Alcohol Amount: 1 beer/month Substance Use Type: None Smoking Status (MU): Never Smoked Tobacco - Immunization History Most Recent Influenza Vaccination: Not the 2016/2017 Season Most Recent Tetanus Shot: within ten years Most Recent Pneumonia Vaccination: never Vaccination Up to Date: Yes Review of Systems Constitutional: Negative Skin: Negative Eyes: Negative ENT: Negative Respiratory: Negative Cardiovascular: Negative Gastrointestinal: Negative Genitourinary: Negative Motor: Negative Neurovascular: Negative Musculoskeletal: Decreased ROM - R shoulder, Other: - R shoulder pain Neurological: Negative Psychological: Negative Is Patient Immunocompromised?: No All Other Systems Reviewed And Are Negative: Yes Physical Exam Triage Information Reviewed: Yes Appearance: Well-Appearing Vital Signs: Initial Vital Signs Temp 97.5 F 12/10/17 09:36 Pulse 79 12/10/17 09:36 Resp 16 12/10/17 09:36 BP 125/83 12/10/17 09:36 Pulse Ox 96 12/10/17 09:36 Vital Signs Reviewed: Yes Eyes: Positive: Conjunctiva Clear ENT: Positive: Normal ENT inspection Neck: Positive: Supple, Nontender, No Lymphadenopathy Respiratory: Positive: Lungs clear, Normal breath sounds Cardiovascular: Positive: No Murmur, Other: - Irregluar(hx afib) Abdomen Description: Positive: Nontender, No Organomegaly, Soft Bowel Sounds: Positive: Present Musculoskeletal: Positive: Other: - RUE: no gross deformity, swelling or discoloration. R anterior shoulder tender to palpation. Limtied active and passive rom due to pain. + drop arm test. area below shoulder is non tender and hasd full s/v/m function. Neurological: Positive: Alert Psychological: Positive: Age Appropriate Behavior Skin Exam: Normal Diagnostics - Radiology No standard instances Radiology Interpretation Completed By: Radiologist - R shoulder IMPRESSION: AC joint arthritis. No fracture is identified. Course/Dx - Course Course Of Treatment: no fx/dislocation. pt declined pain medsand sling. - Differential Dx - Multi-Symptom Provider Diagnoses: acute R shoulder pain. probable rotator cuff injury Discharge - Sign-Out/Discharge Documenting (check all that apply): Patient Departure All imaging exams completed and their final reports reviewed: No Studies - Discharge Plan Condition: Stable Disposition: HOME Patient Education Materials: Shoulder Pain (ED), Rotator Cuff Injury (ED) Referrals: Bhupendra Reyes MD [Medical Doctor] - As Soon As Possible - Billing Disposition and Condition Condition: STABLE Disposition: Home
== END 2017-12-10 11:17 | disposition home or self-care (01) ==
LOC: UCCORT 09:07
DX: M25.511 Pain in right shoulder (principal); Z88.5 Allergy status to narcotic agent
CPT/HCPCS: 99211; G0463

== ENCOUNTER → 2018-03-23 08:04 | Day surgery (SDC) | payer BC ==
[~2018-03-23 08:04] MED LIST: Bivalirudin(*) 250 MG VIAL ONE; Diazepam TAB(*) 5 MG ONE; Heparin 2 UNITS/ML IVPREMIX* 3,000 ML IV ONE; Heparin(*) 1000 UNIT/ML 10 ML VIAL CATH LAB IV ONE; Iohexol 350 (CONTRAST) 200 ML MDV IV ONE; Lidocaine 1% INJ* 10 MG/ML 30 ML SDV ONE; Midazolam* 1 MG/ML 10 ML VIAL (10 MG) ONE; NS 0.9% 1000 ML** 1,000 ML IV SCH; VERAPAMIL 2.5 MG/ML 2 ML VIAL ** 5 mg/2 ml ONE; diPHENhydraMINE PO* 25 MG ONE; fentaNYL* 50 MCG/ML 2 ML VIAL (100 MCG VIAL) ONE; nitroGLYCERIN DRIP* 25,000 MCG/250 ML BTL ONE
[2018-03-23 13:02] VITALS: BP 138/87
--- NOTE | 2018-03-23 16:24 | CATH ---
CC: Dr. Alexis Sosa; Dr. Tyrel Goel III; Dr. Whitney Johnson, part of the [facility] at [facility] in [place], [place] CARDIAC CATHETERIZATION REPORT: DATE OF PROCEDURE: 03/23/18 INDICATIONS FOR THE PROCEDURE: Patient with a history of angina pectoris with abnormal nuclear stress test suggesting significant reversible ischemia to the anterolateral posterior wall with reduced reported ejection fraction on nuclear imaging of 35% assessed for the presence of underlying coronary artery disease. The patient has a history of atrial fibrillation and a tachycardia-induced reversible cardiomyopathy in the past from uncontrolled atrial fibrillation. PROCEDURE: Coronary arteriography, left heart catheterization, left ventriculography. CONSENT: The patient was interviewed and examined in the holding area of the laborer chemical processing, where the risks and benefits were explained. He understood them and wished to proceed. APPROACH UTILIZED: In the holding area, the right radial artery was assessed under ultrasound and found to be acceptable for an approach. As such, this was the approach undertaken. EQUIPMENT UTILIZED: 1. Right radial artery sheath - a 6-German Glidesheath. 2. Diagnostic coronary catheters included a 5-German TIG 4 curve catheter, a 6 - German left EBU 3.5 curve guide catheter. 3. Diagnostic guidewire was utilized - A 260 length Stephenson curved guidewire. 4. Left catheterization catheter was a 5-German PIG Performa radial catheter. 5. The closure device utilized was a radial artery band by [employer]. LABORATORY RESULTS PRECATHETERIZATION: Hemoglobin and hematocrit of 16.1 and 48 with platelet count of 199,000. Glucose of 94, BUN and creatinine of 20 and 1.2, sodium 141, potassium 4.6, chloride 106, and bicarb 27. MEDICATIONS GIVEN: The patient had received prior to coming to the hospital his aspirin 81 mg. He received Valium 2.5 mg, Benadryl 25 mg. He received a radial artery cocktail including 300 mcg of nitroglycerine, 3 mg of verapamil, and 3000 units of heparin. DESCRIPTION OF PROCEDURE: The patient was brought to the cardiovascular laboratory, where a formal time-out was performed. The right radial artery area was prepped and draped in a sterile fashion, anesthetized with 1% lidocaine. The right radial artery was cannulated and the sheath was placed. The radial artery cocktail was given. Diagnostic coronary arteriography was performed utilizing both the TIG 4 curve 5-German catheter and the left EBU 3.5 curve catheter. Left heart catheterization was performed utilizing the PIG Performa radial catheter. Left ventriculography was performed utilizing a total of 28 cc of Omnipaque dye at a rate of 14 cc per second. At the end of the case, the catheter and sheath were removed and hemostasis was obtained with Vasc Band. The reverse Barbeau was a B. The total contrast used was 130 cc of Omnipaque dye. The radiation exposure included 10.9 minutes of fluoro time. The air kerma radiation was 1823 milligray. The DAP radiation was 82943 microgray per meter squared. RESULTS: HEMODYNAMIC DATA: Left heart catheterization - Central aortic pressure recorded at 119/70 with a mean of 92. Left ventricular pressure 112 over left ventricular end- diastolic pressure of 18. LEFT VENTRICULOGRAPHY: Performed in the DELUCA projection revealed moderate global left ventricular hypokinesis, overall EF estimated at 35% to 40%. There appeared to be mid mitral regurgitation, although the quality was suboptimal for full assessment of the severity. There was hypokinesis of the mid anterior wall as well as the mid to apical inferior wall. CORONARY ARTERIOGRAPHY: A. Right coronary artery - A dominant vessel supplying the PDA and posterior left ventricular branches and several acute marginal branches. There was calcification seen in the wall of the aorta around the ostium of the right coronary artery. The degree of narrowing there appeared to be approximately 25 % to 30%. Mild luminal irregularities were seen in the proximal portion. The mid portion had a significant 90% lesion noted involving an acute marginal branch, the ostium of which itself had a 90% obstruction. The continuation of the right coronary artery had another area of 40% narrowing and a 35% narrowing as it turned on to the inferior surface of the heart. B. Left coronary artery: 1. Left main - Widely patent with no significant obstruction. 2. Left anterior descending artery - The ostium/proximal portion of the LAD had haziness seen in it, which when visualized in a very steep YI caudal projection appeared to have a blockage as much as 70%. This was followed by another hazy area of 45% to 50%. The distal LAD had a 99% segment that appeared to be somewhat long in nature with slow filling of the distal most portion of the LAD supplying the very distal apex distal inferior wall. The true caliber of the distal LAD could not be fully appreciated as it maybe hypoperfused. The first diagonal branch was a small caliber vessel followed by a second diagonal branch that was larger in caliber and bifurcated. The second diagonal branch had a proximal possibly/extending back to the ostial lesion of 90%. 3. Circumflex artery - A non dominant vessel supplying a small caliber first and second obtuse marginal branch. The third obtuse marginal branch appeared to trifurcate, and in its mid segment, there was a critical 95% blockage prior to the bifurcation with the lowest branch. The lowest branch itself had mild haziness in it and perhaps had a 45% to 50% narrowing. The caliber of that lower branch was borderline in general. The mid branch was large in nature and clearly bypassable. OVERALL ASSESSMENT: Moderate left ventricular systolic dysfunction with the presence of significant triple vessel disease as described above involving the mid RCA, Circ mid OM, Proximal LAD, Proximal /ostial 2nd Diagonal . Given these findings and his overall left ventricular systolic dysfunction, I felt that bypass surgery was in his best interest. Discussion was had with Dr. Johnson in the department of cardiovascular surgery at [facility], and she stated that she would be willing to see the patient on a semi-urgent basis. The patient will be seen tomorrow in [place] by Dr. Johnson. In the meantime, the patient will continue his current home medications and he was educated to know not to do any type of significant exertional activity. He was instructed to restart his Xarelto for his atrial fibrillation tomorrow am. [id number]/[facility] #: [id number] CHAVEZ
== END | disposition home or self-care (01) ==
LOC: CHICATH 08:04
PROVIDERS: ATTEND Internal Medicine Cardiovascular Disease
DX: I25.118 Atherosclerotic heart disease of native coronary artery with other forms of angina pectoris (principal); R94.39 Abnormal result of other cardiovascular function study; I48.2 Chronic atrial fibrillation; Z79.01 Long term (current) use of anticoagulants; G47.33 Obstructive sleep apnea (adult) (pediatric); N18.3 Chronic kidney disease, stage 3 (moderate); Z85.46 Personal history of malignant neoplasm of prostate; I42.9 Cardiomyopathy, unspecified
CPT/HCPCS: 76937; 85347; 93458; A9270-GY; C1887; J0583; J1644; J2250; J3010

== ENCOUNTER → 2018-07-20 07:33 | Day surgery (SDC) | payer BC ==
[~2018-07-20 07:33] MED LIST changes: +Acetaminophen TAB* 325 MG PO PRN; -Bivalirudin(*) 250 MG VIAL ONE; +Buffered Lidocaine 1% SYRIN* 1 ML/SYRINGE INTRADERM ONE; +Dexamethasone IV* 4 MG/ML 1 ML (4 MG) IV SLOW PU ONE; +Dexamethasone IV* 4 MG/ML 1 ML (4 MG) ONE; +DiMENhydriNATE IV* 50 MG/ML VIAL IV PUSH PRN; -Diazepam TAB(*) 5 MG ONE; +EPHEDrine (Pressors)* 50 MG/ML VIAL ONE; +Famotidine TAB* 20 MG ONE; +Famotidine TAB* 20 MG PO ONE; -Heparin 2 UNITS/ML IVPREMIX* 3,000 ML IV ONE; -Heparin(*) 1000 UNIT/ML 10 ML VIAL CATH LAB IV ONE; -Iohexol 350 (CONTRAST) 200 ML MDV IV ONE; +Ketorolac INJ* 30 MG/ML 1 ML VIAL IV PRN; +Ketorolac INJ* 30 MG/ML 1 ML VIAL ONE; +Lactated Ringers 1000 ML Bag* 1,000 ML IV SCH; +Lidocain 1% EPI 1:100,000 * 30 ML MDV ONE; -Lidocaine 1% INJ* 10 MG/ML 30 ML SDV ONE; +Lidocaine 2% PF * 5 ML VIAL ONE; -Midazolam* 1 MG/ML 10 ML VIAL (10 MG) ONE; +Midazolam* 1 MG/ML 2 ML VIAL (2 MG) ONE; -NS 0.9% 1000 ML** 1,000 ML IV SCH; +Naloxone* 0.4 MG/ML 1 ML VIAL IV PRN; +Ondansetron INJ* 2 MG/ML VIAL ONE; +Phenylephrine 40 MCG/ML SYRINGE ONE; +Propofol* 10 MG/ML 20 ML BTL ONE; +Rocuronium* 10 MG/ML VIAL ONE; -VERAPAMIL 2.5 MG/ML 2 ML VIAL ** 5 mg/2 ml ONE; -diPHENhydraMINE PO* 25 MG ONE; +fentaNYL* 50 MCG/ML 2 ML VIAL (100 MCG VIAL) IV PRN; -nitroGLYCERIN DRIP* 25,000 MCG/250 ML BTL ONE; +oxyCODONE/Acetamin 5/325 MG* TAB PO PRN
[2018-07-20 11:49] VITALS: BP 140/85
--- NOTE | 2018-07-20 13:31 | OP ---
DATE OF OPERATION: 07/20/18 [facility] DATE OF : 43 SURGEON: Alexis Jones MD. INFORMATION TECHNOLOGY CONSULTANT: Sudarshan Lacy MD. 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 POST-OP DIAGNOSIS: Malignant neoplasm right submandibular gland OPERATIVE PROCEDURE: Right submandibular gland excision. ESTIMATED BLOOD LOSS: Less than 10 cc. SPECIMEN: Right submandibular gland to Pathology. INDICATIONS: This is a 73-year-old male with a longstanding history of right submandibular gland enlargement with perhaps some recent growth over the course of the past year. Fine needle aspiration was consistent with malignancy, although the specific subtype could not be determined cytologically. The decision was made to bring the patient to the operating room for removal. Preoperatively an MRI was done which revealed no evidence of invasion and a mass that appeared to be well confined to the submandibular gland properly. There was no concerning adenopathy present either clinically or on imaging. DESCRIPTION OF PROCEDURE: On 07/20/18, the patient was brought to the operating room. General anesthesia was induced and oral endotracheal tube was placed. The patient was positioned. The intended incision site was marked. A pre-prep verification was performed. The skin was cleansed with alcohol and 4 cc of 1% lidocaine with 1:100,000 epinephrine was infiltrated into the subcutaneous tissue. The neck was then prepped with Betadine. The patient was draped sterilely and a time-out was performed. A 15-blade was used to make an incision approximately 2 fingerbreadths below the edge of mandible at the inferior edge of the submandibular gland. Dissection was undertaken through the subcutaneous fat and platysma utilizing a scalpel and Bovie cautery. Once the fascia was reached that was overlying the submandibular gland, this fascia was incised at the inferior edge of the gland and then elevated superiorly and pedicled superiorly to expose the gland in an effort to preserve the margin of the mandibular branch of the facial nerve. With the gland exposed, the inferior aspect of the gland was freed. Attention was then turned towards the posterior superior aspect of the gland where the facial artery and vein were identified, ligated with hemoclips and divided. The anterior aspect of the gland was then explored. The digastric tendon, anterior belly of the digastric, and ultimately the mylohyoid muscle were all exposed as the gland was gently dissected free of those structures. With the vascular pedicle ligated, the gland was then held inferiorly and posteriorly. The mylohyoid muscle was pulled anteriorly and the lingual nerve was exposed, as was the Eaton's duct. The lingual nerve was preserved, but its attachment to the gland at the submandibular ganglion was divided. The submandibular duct was ligated with hemoclips and divided. The deep side of the gland was then easily rolled off of the underlying fascia. The gland was able to be removed intact. The tumor essentially appeared to be well confined to the gland and confined within its capsule. The area was explored. There was no evidence of adenopathy in the region. Valsalva was performed after the wound was copiously irrigated. Small areas of potential bleeding were bipolared and the wound was then closed in layers with the platysma being reapproximated with 4-0 Vicryl and skin being reapproximated with 4-0 nylon. A final layer of Mastisol and Steri-Strips was then applied. The patient was returned to the care of the anesthesiologist, extubated, and delivered to PACU in stable condition. [id number]/[facility] #: [id number] CHAVEZ
== END | disposition home or self-care (01) ==
LOC: OR 07:33
PROVIDERS: ATTEND Otolaryngology
DX: C08.0 Malignant neoplasm of submandibular gland (principal); I10 Essential (primary) hypertension; I48.91 Unspecified atrial fibrillation; I25.10 Atherosclerotic heart disease of native coronary artery without angina pectoris; Z95.1 Presence of aortocoronary bypass graft; Z79.01 Long term (current) use of anticoagulants; M19.90 Unspecified osteoarthritis, unspecified site; E78.5 Hyperlipidemia, unspecified; G47.33 Obstructive sleep apnea (adult) (pediatric); Z85.46 Personal history of malignant neoplasm of prostate
CPT/HCPCS: 88307; 88313; 88341; 88342; 88360; A9270-GY; J1100; J1885; J2250; J2405; J2704; J3010

== ENCOUNTER → 2019-04-07 15:45 | Inpatient (IN) | payer BC, MEDICARE ==
--- NOTE | 2019-04-03 13:43 | HP ---
HISTORY AND PHYSICAL: DATE OF ADMISSION/SURGERY: 04/06/19 DATE OF OFFICE VISIT: 04/03/19 SURGEON: Jennifer Huizar MD * (DICTATD BY ELAINE SALCIDO) PROCEDURE: Right total knee arthroplasty. CHIEF COMPLAINT: Right knee pain. HISTORY OF PRESENT ILLNESS: Mr. Stewart is a 74-year-old gentleman with end- stage osteoarthritis of the right knee. He has failed conservative treatment and elected to proceed with a right total knee arthroplasty. PAST MEDICAL HISTORY: History of TIA, prostate cancer, AFib, coronary artery disease, and sleep apnea. PAST SURGICAL HISTORY: CABG, left total knee arthroplasty, left knee MCL repair , prostatectomy, tumor removal from a salivary gland. CURRENT MEDICATIONS: 1. Cartia 180 mg daily. 2. Xarelto 20 mg daily. 3. Zinc 30 mg. 4. Aspirin 81 mg a day. 5. Glucosamine and chondroitin. ALLERGIES: OXYCODONE and HYDROCODONE causing rash and hives, SIMVASTATIN, PREDNISONE, LISINOPRIL, and all STATINS. FAMILY HISTORY: Diabetes and cancer. SOCIAL HISTORY: He is a 74-year-old gentleman, lives with his . He does not smoke. REVIEW OF SYSTEMS: A complete 14-point review of systems was reviewed with the patient. Positive for history of a TIA. He denies history of DVT, PE, hepatitis, HIV, or anesthesia problems. PHYSICAL EXAMINATION GENERAL: He is well developed, well nourished, in no acute distress. VITAL SIGNS: He stands 68 inches tall, weighs 211 pounds. His blood pressure 120/70, his heart rate is 62. HEENT: Normocephalic, atraumatic. NECK: Supple. No palpable lymph nodes. PULMONARY: Lungs are clear to auscultation bilaterally. CARDIO: Regular rate and rhythm. Strong S1, S2. ABDOMEN: Soft, nontender, nondistended. NEUROLOGICAL: He is alert and oriented x3. MUSCULOSKELETAL: Right lower extremity, the skin is intact. There are no open wounds or abrasions. There is moderate effusion of the right knee joint. He has tenderness along the medial and lateral joint line. Range of motion is 15 to 110 degrees of flexion. He is able to dorsiflex and plantarflex. He has 2+ dorsalis pedis pulse and intact sensation. ASSESSMENT AND PLAN: Mr. Stewart is a 74-year-old gentleman with end-stage osteoarthritis of the right knee. He has failed conservative treatment and elected to proceed with a right total knee arthroplasty. The surgery is scheduled for 04/06/[address] Huizar discussed the risks and benefits of the surgery at today's visit and all of his questions were answered. He will follow up with Dr. Huizar 2 weeks after the surgery. He was instructed to stop his Xarelto. His last dose was 04/02/19 and no TXA will be used in this patient because of his history of TIA. ELAINE SALCIDO [id number]/[facility] #: [id number] CHAVEZ
--- OUTSIDE RECORDS SUMMARY | 2019-04-06 11:52 | XMS REPORT | Continuity of Care Document ---
:1945 External Reference #:[id number] Author Name Jennifer Huizar M.D. (transmitted by agent of provider Leah Titus) Address [address] [place] [address] Care Team Providers Name Role Phone Laurita Goel III, MD - Internal Care Team Information Machining Supervisor Medicine Alexis Sosa MD - Cardiovascular Care Team Information Machining Supervisor Disease Problems Active Problems Provider Date Malignant essential hypertension Laurita Goel M.D. Onset: 01/29/2011 Pure hypercholesterolemia Laurita Goel M.D. Onset: 01/29/2011 Impaired fasting glycaemia Laurita Goel M.D. Onset: 01/29/2011 History of malignant neoplasm of prostate Laurita Goel M.D. Onset: 01/29 Benign essential hypertension Laurita Goel M.D. Onset: 02/22/2012 Atrial fibrillation Laurita Goel M.D. Onset: 02/22/2012 Chest pain Olivia Dale D.O. Onset: 09/13/2012 Difficulty breathing Alexis Sosa M.D. Onset: 05/16/2013 Hyperlipidemia Alexis Sosa M.D. Onset: 05/16/2013 Obesity Alexis Sosa M.D. Onset: 05/16/2013 Malaise and fatigue ELAINE Matthew Onset: 07/04/2013 Chronic atrial fibrillation Laurita Goel M.D. Onset: 05/09/2015 Obstructive sleep apnea syndrome Laurita Goel M.D. Onset: 05/29/2015 Essential hypertension Laurita Goel M.D. Onset: 07/09/2015 Localized, primary osteoarthritis Jennifer Huizar M.D. Onset: 02/21/2018 Arthroplasty of knee Jennifer Huizar M.D. Onset: 02/21/2018 Coronary atherosclerosis Jessica Meza N.P. Onset: 04/08/2018 Social History Type Date Description Comments Sex Unknown Tobacco Use Start: Unknown Never Smoked Cigarettes Tobacco Use Start: Unknown Never Smoked Cigars Tobacco Use Start: Unknown Never Smoked A Pipe Smoking Status Reviewed: 02/27/19 Never Smoked A Pipe Smokeless Tobacco Never Used Smokeless Tobacco ETOH Use Rarely consumes alcohol Tobacco Use Start: Unknown Patient has never smoked Recreational Drug Use Denies Drug Use Exercise Type/Frequency Exercises sporadically Exercise Type/Frequency Home fitness gym cardio/weights Allergies, Adverse Reactions, Alerts Active Allergies Reaction Severity Comments Date Oxycodone 11/10/2016 Hydrocodone 11/13/2016 Simvastatin severe myalgias Severe 11/13/2016 Prednisone 01/05/2017 Lisinopril cough Mild 03/09/2017 Statins Muscle weakness, dizziness 04/11/2018 Inactive Allergies NKDA 09/23/2010 Medications Active Medications SIG Qnty Indications Ordering Provider Date Cartia XT take one capsule 90caps Alexis Enamorado 05/16/2018 180mg Caps by mouth every day Bertha Sosa ER 24HR Xarelto Take One Tablet By 90tabs Laurita Goel, 05/09/2015 20mg Tablets Mouth Every Day MDc Zinc 1 by mouth prn Unknown 30mg Capsules sore throat Aspirin 1 by mouth every Unknown 81mg Tablets day ( discharge DR GORMAN 04/03/18) Glucosamine 1 tab by mouth Unknown Chondroitin 1500 daily Complex 1500Com Capsules Zetia 1 by mouth every 90tabs Alexis Enamorado 10mg Tablets day Bertha Sosa Brent, 3350/Electrolytes 240gm Solution Rec Medications Administered in Office Medication SIG Qnty Indications Ordering Provider Date Technetium TC 99M Adán Cartwright DO FAC 11/17/2016 Tetrofosmin, Per Unit Dose Up To 40 Millicuries Injection Immunizations CPT Code Status Date Vaccine Lot # [id number] Given 11/10/2016 Influenza Virus Vaccine, Quadrivalent, Split, [id number] Preservative Free [id number] Given 07/09/2015 Tdap - Tetanus/Diptheria/Acellular Pertussis [id number] Given 07/09/2015 Pneumococcal Conjugate Vaccine 13 Valent For [id number] Intramuscular Use 18019 Given 12/30/2009 Pneumonia Vaccine [id number] Vital Signs Date Vital Result Comment 02/27/2019 2:31pm Height 68 inches 5'8" Weight 205.00 lb Heart Rate 56 /min BP Systolic 140 mmHg BP Diastolic 56 mmHg Respiratory Rate 18 /min Pain Level 0 BMI (Body Mass Index) 31.2 kg/m2 01/03/2019 10:02am Height 68 inches 5'8" Weight 212.00 lb without shoes Heart Rate 58 /min radial, skipped beats BP Systolic Sitting 140 mmHg Ra, reg cuff BP Diastolic Sitting 86 mmHg Ra, reg cuff BP Systolic Standing 122 mmHg repeat sitting la BP Diastolic Standing 84 mmHg repeat sitting la BMI (Body Mass Index) 32.2 kg/m2 Ejection Fraction 50% echo 03/28/18 Results Test Acquired Date Facility Test Result H/L Range Note Laboratory test 10/27/2018 [facility] Surgical SEE RESULT [address] [place] [address] [phone] CBC Auto Diff 09/09/2018 [facility] White Blood 6.0 Normal 3.5 -10.[address] Count 10^3/uL [place], [place] [id number] [phone] Red Blood Count 5.24 10^6/uL Normal 4.18-5.48 Hemoglobin 15.8 g/dL Normal 14.0-18.0 Hematocrit 45 % Normal 42-52 Mean Corpuscular Volume 86 fL Normal 80-94 Mean Corpuscular Hemoglobin 30 pg Normal 27-31 Mean Corpuscular HGB Conc 35 g/dL Normal 31-36 Red Cell Distribution Width 14 % Normal 10-15 Platelet Count 180 10^3/uL Normal 150-450 Mean Platelet Volume 8.2 fL Normal 7.4-10.4 Abs Neutrophils 3.2 10^3/uL Normal 1.5-7.7 Abs Lymphocytes 1.7 10^3/uL Normal 1.0-4.8 Abs Monocytes 0.8 10^3/uL Normal 0-0.8 Abs Eosinophils 0.2 10^3/uL Normal 0-0.6 Abs Basophils 0.0 10^3/uL Normal 0-0.2 Abs Nucleated RBC 0.0 10^3/uL Granulocyte % 53.6 % Lymphocyte % 29.0 % Monocyte % 13.1 % Eosinophil % 3.6 % Basophil % 0.7 % Nucleated Red Blood Cells % 0.1 Comp Metabolic 09/09/2018 [facility] Sodium 140 mmol/L Normal 135-145 Panel [address] [place] [address] [phone] Potassium 4.2 mmol/L Normal 3.5-5.0 Chloride 106 mmol/L Normal 101-111 Co2 Carbon Dioxide 25 mmol/L Normal 22-32 Anion Gap 9 mmol/L Normal 2-11 Glucose 104 mg/dL High 70-100 Blood Urea Nitrogen 28 mg/dL High 6-24 Creatinine 1.33 mg/dL High 0.67-1.17 BUN/Creatinine Ratio 21.1 High 8-20 Calcium 9.4 mg/dL Normal 8.6-10.3 Total Protein 6.9 g/dL Normal 6.4-8.9 Albumin 4.5 g/dL Normal 3.2-5.2 Globulin 2.4 g/dL Normal 2-4 Albumin/Globulin Ratio 1.9 Normal 1-3 Total Bilirubin 1.10 mg/dL High 0.2-1.0 Alkaline Phosphatase 73 U/L Normal 34-104 Alt 17 U/L Normal 7-52 Ast 15 U/L Normal 13-39 Egfr Non- 52.6 >60 Egfr 63.6 >60 3 Lipid Profile 09/09/2018 [facility] Triglycerides 166 mg/dL 4 (Trig/Chol/HDL) [address] [place] [address] [phone] Cholesterol 187 mg/dL 5 HDL Cholesterol 39.1 mg/dL 6 LDL Cholesterol 115 mg/dL 7 Laboratory test 09/09/2018 [facility] Creatine 101 U/L Normal 10-223 8 finding [address] [facility] Kinase(CK) [place] [address] [phone] 1 SEE RESULT BELOW Name: ROSS STEWART : [address]: Yousuf Quinn MD Acct: [id number] Unit: [id number] AGE: 73 Location: [facility] Re10/27/18 SEX: M Status: DEP REF SPEC: [id number] THAIS: 10/27/18- SUBM DR: Yousuf Quinn MD REQ: [id number] RECD: 10/27/18 STATUS: ALON MATT DR: Laurita Goel III, MD _ ORDERED: LEVEL 4/4 FINAL DIAGNOSIS 1. Colon, at 75 cm, biopsy: -- Tubular adenoma. -- No high grade dysplasia or malignancy. 2. Colon, at 70 cm, biopsy: -- Hyperplastic polyp. 3. Colon, at 50 cm, biopsy: -- Tubular adenoma. -- No high grade dysplasia or malignancy. 4. Colon, at 30 cm, biopsy: -- Tubular adenoma. -- No high grade dysplasia or malignancy. CLINICAL HISTORY Screening/Surveillance for malignancy in asymptomatic patient POST-OPERATIVE DIAGNOSIS Colonoscopy: to cecum; ascending colon ??? orise; at 70 cm biopsy; at 50 cm biopsy; at 30 cm snare GROSS DESCRIPTION 1. The specimen is received in formalin labeled, Colon Polyp at 75 cm, and consists of a 0.3 x 0.2 x 0.1 cm aggregate of mcclure-white irregular soft tissue fragments admixed with organic debris. Entirely submitted, one cassette. 2. The specimen is received in formalin labeled, Colon Polyps Biopsy at 70 cm, and consists of two mcclure-pink irregular to polypoid soft tissue fragments averaging 0.4 x 0.3 x CONTINUED ON NEXT PAGE DEPARTMENT OF PATHOLOGY, [address], [place], [place] [address] Luis Cope M.D. Director [facility] # [id number] 0.2 cm which are submitted entirely in one cassette. 3. The specimen is received in formalin labeled, Colon Polyp at 50 cm, and consists of a 0.6 x 0.5 x 0.3 cm mcclure-pink polypoid soft tissue fragment which is bisected and submitted entirely in one cassette. 4. The specimen is received in formalin labeled, Colon Polyp at 30 cm, and consists of two mcclure-pink polypoid soft tissue fragments measuring 0.4 x 0.3 x 0.2 cm and 0.6 x 0.5 by up to 0.4 cm. The larger fragment is inked, bisected and the specimen is entirely submitted in one cassette. Signed by and Reported on: Amy Cheung MD 10/28/18 1646 END OF REPORT DEPARTMENT OF PATHOLOGY, [address] [place] [id number] Luis Cope M.D. Director [facility] # [id number] 2 FASTING in 6-8 weeks Copy Result to: LAURITA GOEL ([id number]) 3 Because ethnic data is not always readily [...] 15-29 5 Kidney failure <15 (or dialysis) 4 Desirable: <150 Borderline High: 150-199 High: 200-499 Very High: >500 5 Desirable: <200 Borderline High: 200-239 High: >239 6 Low: <40 Desirable: 40-60 High: >60 7 Desirable: <100 Near Optimal: 100-129 Borderline High: 130-159 High: 160-189 Very High: >189 8 FASTING in 6-8 weeks Copy Result to: LAURITA GOEL ([id number]) Procedures Date Code Description Status 01/18/2019 03529 ECHO Transthoracic, Real-Time 2D With Doppler And Completed Color Flow 01/03/2019 62112 EKG Tracing & Interpretation Completed 11/16/2018 97853 Holter Monitor Review (24 hr)dr review & interp only Completed 11/14/2018 83197 ECG Monitor/Recording W/Visual Superimposition Completed Scanning 10/27/2018 [id number] Colonoscopy Completed 05/20/2017 [id number] Colonoscopy Completed 01/14/2017 120357986 Diabetic Retinal Eye Exam Completed 06/03/2004 43762503 Colonoscopy Completed Medical Devices Description No Information Available Encounters Type Date Location Provider Dx Diagnosis Office Visit 01/03/2019 [facility] Alexis Enamorado I49.3 Ventricular premature 10:20a Bertha Sosa depolarization I10 Essential (primary) hypertension I25.10 [facility] [place] coronary artery w/o ang pctrs E78.00 Pure hypercholesterolemia, unspecified I48.20 Chronic atrial fibrillation, unspecified Office Visit 11/21/2018 10:30a [facility] 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 I10 Essential (primary) [facility] hypertension Rat Trapper I25.10 Athscl heart disease [place] coronary artery w/o ang pctrs E78.00 Pure hypercholesterolemia, unspecified I48.2 Chronic atrial fibrillation I49.3 Ventricular premature depolarization Assessments Date Code Description Provider 02/27/2019 M25.561 Pain in right knee Jennifer Huizar M.D. 02/27/2019 M25.461 Effusion, right knee Jennifer Huizar M.D. 02/27/2019 M17.11 Unilateral primary osteoarthritis, right Jennifer Huizar M.D. knee 01/18/2019 I25.10 Atherosclerotic heart disease of [place] Traveling ECHO 2 coronary artery without angina pectoris 01/18/2019 I42.9 Cardiomyopathy, unspecified Alexis Sosa M.D. 01/18/2019 I42.9 Cardiomyopathy, unspecified Traveling ECHO 2 01/03/2019 I49.3 Ventricular premature depolarization Alexis Sosa M.D. 01/03/2019 I10 Essential (primary) hypertension Alexis Sosa M.D. 01/03/2019 I25.10 Atherosclerotic heart disease of [place] Alexis Sosa M.D. coronary artery with 01/03/2019 E78.00 Hypercholesterolemia Alexis Sosa M.D. 01/03/2019 I48.20 Chronic atrial fibrillation Alexis Sosa M.D. 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 11/16/2018 I48.91 Unspecified atrial fibrillation Alexis Sosa M.D. 11/16/2018 I49.3 Ventricular premature depolarization Alexis Sosa M.D. 11/14/2018 I49.3 Ventricular premature depolarization Nurse Visit [facility] 11/14/2018 I48.91 Unspecified atrial fibrillation Nurse Visit [facility] 09/13/2018 I10 Essential (primary) hypertension Jessica Meza, N.P. 09/13/2018 I25.10 Atherosclerotic heart disease [place] Jessica Meza, N.PYadira coronary artery with 09/13/2018 E78.00 Hypercholesterolemia Jessica Meza, N.P. 09/13/2018 I48.2 Chronic atrial fibrillation Jessica Meza, N.P. 09/13/2018 I49.3 Ventricular premature depolarization Jessica Meza N.P. Plan of Treatment Future Appointment(s):04/03/2019 8:30 am - Jennifer Huizar M.D. at [facility]04/06/2019 4:30 pm - [facility] 9:30 am - Alexis Sosa M.D. at [facility]07/13/2019 1:20 pm - Alexis Sosa M.D. at [facility]02/27/2019 - Jennifer Huizar M.D.M25.561 Pain in right kneeFollow up:Follow up: 7-10 days before ezxpbvxC30.461 Effusion, right kneeM17.11 Unilateral primary osteoarthritis, right kneeNew Xrays:Knee 3 Views RT, Ordered: 02/27/19 Functional Status Description No Information Available Mental Status Description No Information Available Referrals Description No Information Available
--- OUTSIDE RECORDS SUMMARY | 2019-04-06 11:52 | XMS REPORT | Continuity of Care Document ---
:1945 External Reference #:[id number] Author Name Tyrel Goel M.D. (transmitted by agent of provider Allyssa Tompkins ) Address [address] [facility], [address] [place] [id number] Care Team Providers Name Role Phone Tyrel Goel III, MD - Internal Care Team Information Television Repair Teacher Medicine Alexis Sosa MD - Cardiovascular Care Team Information Television Repair Teacher Disease Jennifer Huizar MD - Adult Care Team Information Television Repair Teacher [phone] Reconstructive Orthopaedic Surgery Problems Active Problems Provider Date Malignant essential hypertension Tyrel Goel M.D. Onset: 01/29/2011 Pure hypercholesterolemia Tyrel Goel M.D. Onset: 01/29/2011 Impaired fasting glycaemia Tyrel Goel M.D. Onset: 01/29/2011 History of malignant neoplasm of prostate Tyrel Goel M.D. Onset: 01/29 Benign essential hypertension Tyrel Goel M.D. Onset: 02/22/2012 Atrial fibrillation Tyrel Goel M.D. Onset: 02/22/2012 Chest pain Olivia Dale D.O. Onset: 09/13/2012 Difficulty breathing Alexis Sosa M.D. Onset: 05/16/2013 Hyperlipidemia Alexis Sosa M.D. Onset: 05/16/2013 Obesity Alexis Sosa M.D. Onset: 05/16/2013 Malaise and fatigue ELAINE Matthew Onset: 07/04/2013 Chronic atrial fibrillation Tyrel Goel M.D. Onset: 05/09/2015 Obstructive sleep apnea syndrome Tyrel Goel M.D. Onset: 05/29/2015 Essential hypertension Tyrel Goel M.D. Onset: 07/09/2015 Localized, primary osteoarthritis Jennifer Huizar M.D. Onset: 02/21/2018 Arthroplasty of knee Jennifer Huizar M.D. Onset: 02/21/2018 Coronary atherosclerosis Jessica Meza, N.P. Onset: 04/08/2018 Social History Type Date Description Comments Sex Unknown Tobacco Use Start: Unknown Never Smoked Cigarettes Tobacco Use Start: Unknown Never Smoked Cigars Tobacco Use Start: Unknown Never Smoked A Pipe Smoking Status Reviewed: 04/04/19 Never Smoked A Pipe Smokeless Tobacco Never [...] Medications SIG Qnty Indications Ordering Provider Date Cpap Mask And cpap supplies - 1units G47.33 Tyrel Goel, 04/04/2019 Supplies kenny gilbert M.D. Device tubing, filters, for sleep apnea dx 780.57 Pt using cpap regularly and benefits from the Rx. Praluent 1 injection sc 6ml I25.10 Jessica Meza, 03/30/2019 75mg/ml every 2 weeks N.P. Solution Auto-Inject Cartia XT take one capsule 90caps Alexis Enamorado 05/16/2018 180mg Caps by mouth every day Bertha Sosa ER 24HR Xarelto Take One Tablet By 90tabs Tyrel Goel, 05/09/2015 20mg Tablets Mouth Every Day M.DYadira Zinc 1 by mouth prn Unknown 30mg Capsules sore throat Aspirin 1 by mouth every Unknown 81mg Tablets day ( discharge DR GORMAN 2/24/19) Glucosamine 1 tab by mouth Unknown Chondroitin 1500 daily Complex 1500Com Capsules Medications Administered in Office Medication SIG Qnty Indications Ordering Provider Date Technetium TC 99M Juventino Michelle M.D. 03/23/2019 Tetrofosmin, Per Unit Dose Up To 40 Millicuries Injection Technetium TC 99M Juventino Michelle M.D. 03/23/2019 Tetrofosmin, Per Unit Dose Up To 40 Millicuries Injection Technetium TC 99M Adán Cartwright, [facility] 11/17/2016 Tetrofosmin, Per Unit Dose Up To 40 Millicuries Injection Immunizations CPT Code Status Date Vaccine Lot # [id number] Given 11/10/2016 Influenza Virus Vaccine, Quadrivalent, Split, [id number] Preservative Free 10556 Given 07/09/2015 Tdap - Tetanus/Diptheria/Acellular Pertussis [id number] 48537 Given 07/09/2015 Pneumococcal Conjugate Vaccine 13 Valent For [id number] Intramuscular Use 45356 Given 12/30/2009 Pneumonia Vaccine [id number] Vital Signs Date Vital Result Comment 04/04/2019 3:58pm Height 68 inches 5'8" Weight 211.00 lb Heart Rate 71 /min BP Systolic Sitting 135 mmHg BP Diastolic Sitting 81 mmHg BMI (Body Mass Index) 32.1 kg/m2 04/03/2019 8:37am Height 68 inches 5'8" Weight 211.25 lb Heart Rate 52 /min BP Systolic 120 mmHg BP Diastolic 70 mmHg Respiratory Rate 18 /min Pain Level 0 BMI (Body Mass Index) 32.1 kg/m2 Results Test Acquired Date Facility Test Result H/L Range Note CBC Auto 04/03/2019 [facility] White Blood 5.5 10^3/uL Normal 3.5-10.[address] [place] [address] [phone] Red Blood Count 5.27 10^6/uL Normal 4.18-5.48 Hemoglobin 15.9 g/dL Normal 14.0-18.0 Hematocrit 47 % Normal 42-52 Mean Corpuscular Volume 89 fL Normal 80-94 Mean Corpuscular Hemoglobin 30 pg Normal 27-31 Mean Corpuscular HGB Conc 34 g/dL Normal 31-36 Red Cell Distribution Width 14 % Normal 10-15 Platelet Count 170 10^3/uL Normal 150-450 Mean Platelet Volume 8.2 fL Normal 7.4-10.4 Abs Neutrophils 3.1 10^3/uL Normal 1.5-7.7 Abs Lymphocytes 1.5 10^3/uL Normal 1.0-4.8 Abs Monocytes 0.6 10^3/uL Normal 0-0.8 Abs Eosinophils 0.2 10^3/uL Normal 0-0.6 Abs Basophils 0.1 10^3/uL Normal 0-0.2 Abs Nucleated RBC 0.0 10^3/uL Granulocyte % 57.1 % Lymphocyte % 27.3 % Monocyte % 11.6 % Eosinophil % 2.9 % Basophil % 1.1 % Nucleated Red Blood Cells % 0.1 Inr/Protime 04/03/2019 [facility] Inr 1.54 High 0.82-1.[address] [place] [address] [phone] Laboratory test 04/03/2019 [facility] Partial 46.7 High 26.0- 38.[address] [place] [address] [place] [address] Time PTT [phone] Urinalysis 04/03/2019 [facility] Urine Color Yellow Profile [address] [place] [address] [phone] Urine Appearance Clear Urine Specific Grundy 1.021 Normal 1.010-1.030 Urine pH 5.0 Normal 5-9 Urine Urobilinogen Negative Negative Urine Ketones Negative Negative Urine Protein Negative Negative Urine Leukocytes Negative Negative Urine Blood Negative Negative Urine Nitrite Negative Negative Urine Bilirubin Negative Negative Urine Glucose Negative Negative Comp Metabolic 04/03/2019 [facility] Sodium 139 mmol/L Normal 135-[address] [place] [address] [phone] Potassium 4.5 mmol/L Normal 3.5-5.0 Chloride 105 mmol/L Normal 101-111 Co2 Carbon Dioxide 29 mmol/L Normal 22-32 Anion Gap 5 mmol/L Normal 2-11 Glucose 98 mg/dL Normal 70-100 Blood Urea Nitrogen 25 mg/dL High 6-24 Creatinine 1.21 mg/dL High 0.67-1.17 BUN/Creatinine Ratio 20.7 High 8-20 Calcium 9.5 mg/dL Normal 8.6-10.3 Total Protein 7.1 g/dL Normal 6.4-8.9 Albumin 4.8 g/dL Normal 3.2-5.2 Globulin 2.3 g/dL Normal 2-4 Albumin/Globulin Ratio 2.1 Normal 1-3 Total Bilirubin 1.00 mg/dL Normal 0.2-1.0 Alkaline Phosphatase 70 U/L Normal 34-104 Alt 24 U/L Normal 7-52 Ast 20 U/L Normal 13-39 Egfr Non- 58.5 >60 Egfr 70.7 >60 2 Type & Screen 04/03/2019 [facility] Patient Blood Type O Positive [address] [place] [address] [phone] Antibody Screen NEGATIVE Order 03/23/2019 [facility] Stress Test, <pending> [address] [place] [address] Nuclear [phone] Laboratory test 10/27/2018 [facility] Surgical SEE RESULT [address] [place] [address] [phone] 1 Standard intensity warfarin therapeutic range: 2.0-3.0 High intensity warfarin therapeutic range: 2.5-3.5 2 Because ethnic data is not always readily [...] 15-29 5 Kidney failure <15 (or dialysis) 3 SEE RESULT BELOW Name: ROSS STEWART : [address]: Yousuf Quinn MD Acct: [id number] Unit: [id number] AGE: 73 Location: [facility] Re10/27/18 SEX: M Status: DEP REF SPEC: [id number] THAIS: 10/27/18- SUBM DR: Yousfu Quinn MD REQ: [id number] RECD: 10/27/18 STATUS: ALON MATT DR: Tyrel Goel III, MD _ ORDERED: LEVEL 4/4 [...] CONTINUED ON NEXT PAGE DEPARTMENT OF PATHOLOGY, [address] [place] [address] Luis Cope M.D. Director [facility] # [id number] 0.2 cm which are submitted entirely in [...] 1646 END OF REPORT DEPARTMENT OF PATHOLOGY, [address] [place] [address] Luis Cope M.D. Director [facility] # [id number] Procedures Date Code Description Status 03/30/2019 87199 EKG Tracing & Interpretation Completed 03/23/2019 22553 Stress Test Completed 03/23/2019 60993 Myocardial Perfusion Imaging Tomographic (Spect) Completed Multiple Studies 01/18/2019 91465 ECHO Transthoracic, Real-Time 2D With Doppler And Completed Color Flow 01/03/2019 68980 EKG Tracing & Interpretation Completed 11/16/2018 35577 Holter Monitor Review (24 hr)dr review & interp only Completed 11/14/2018 29114 ECG Monitor/Recording W/Visual Superimposition Completed Scanning 10/27/2018 59726444 Colonoscopy Completed 05/20/2017 57032570 Colonoscopy Completed 01/14/2017 209668469 Diabetic Retinal Eye Exam Completed 06/03/2004 99492416 Colonoscopy Completed Medical Devices Description No Information Available Encounters Type Date Location Provider Dx Diagnosis Office Visit 03/30/2019 [facility] Jessica Meza, I25.10 Athscl heart 9:30a Of Donor Relations Officer N.P. disease of [place] coronary artery w/o ang pctrs I42.9 Cardiomyopathy, unspecified I49.3 Ventricular premature depolarization I10 Essential (primary) hypertension I48.20 Chronic atrial fibrillation, unspecified Z01.810 Encounter for preprocedural cardiovascular examination M17.11 Unilateral primary osteoarthritis, right knee Office Visit 02/27/2019 2:15p [facility] Jennifer Bhupendra, M25.561 Pain in right at [facility].D knee M25.461 [place], right knee M17.11 Unilateral primary osteoarthritis, right knee Office Visit 01/03/2019 [facility] Alexis Enamorado I49.3 Ventricular 10:20a Cardiology Bertha Sosa premature depolarization I10 Essential (primary) hypertension I25.10 Athscl heart disease of [place] coronary artery w/o ang pctrs E78.00 Pure hypercholesterolemia, unspecified I48.20 Chronic atrial fibrillation, unspecified Office Visit 11/21/2018 10:30a [facility], 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 examination 04/04/2019 M17.11 Unilateral primary osteoarthritis, right Tyrel Goel M.D. knee 04/04/2019 I25.10 Atherosclerotic heart disease of [place] Tyrel Goel M.D. coronary artery without angina pectoris 04/04/2019 I48.20 Chronic atrial fibrillation Tyrel Goel M.D. 04/04/2019 I10 Essential (primary) hypertension Tyrel Goel M.D. 04/04/2019 E78.00 Hypercholesterolemia Tyrel Goel M.D. 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 04/04/2019 G47.33 Obstructive sleep apnea (adult) Tyrel Goel M.D. (pediatric) 04/03/2019 M25.561 Pain in right knee Jennifer Huizar M.D. 04/03/2019 M17.11 Unilateral primary osteoarthritis, right Jenniferpinky Huizar M.D. knee 03/30/2019 R94.31 Abnormal electrocardiogram [ECG] [EKG] Juventino Michelle M.D. 03/30/2019 I25.10 Atherosclerotic heart disease of [place] Jessica S. Foster, N.P. coronary artery without angina pectoris 03/30/2019 I42.9 Cardiomyopathy, unspecified Jessica S. Foster, N.P. 03/30/2019 I49.3 Ventricular premature depolarization Jessica S. Foster, N.P. 03/30/2019 I10 Essential (primary) hypertension Jessica S. Foster, N.P. 03/30/2019 I48.20 Chronic atrial fibrillation Jessica S. Foster, N.P. 03/30/2019 Z01.810 Encounter for preprocedural Jessica S. Foster, N.P. cardiovascular examination 03/30/2019 M17.11 Unilateral primary osteoarthritis, right Jessica S. Foster, N.P. knee 03/23/2019 I25.10 Atherosclerotic heart disease of [place] Juventino Michelle M.D. coronary artery without angina pectoris 03/23/2019 I42.9 Cardiomyopathy, unspecified Alexis Sosa M.D. 03/23/2019 I25.10 Atherosclerotic heart disease of [place] Alexis Sosa M.D. coronary artery without angina pectoris 03/23/2019 I49.3 Ventricular premature depolarization Alexis Sosa M.D. 03/23/2019 I10 Essential (primary) hypertension Alexis Sosa M.D. 03/23/2019 I25.10 Atherosclerotic heart disease of [place] Alexis Sosa M.D. coronary artery without angina pectoris 03/23/2019 I48.20 Chronic atrial fibrillation Alexis Sosa M.D. 02/27/2019 M25.561 Pain in right knee Jennifer Huizar M.D. 02/27/2019 M25.461 [place]usion, right knee Jennifer Bhupendra, M.D. 02/27/2019 M17.11 Unilateral primary osteoarthritis, right Jennifer Huizar M.D. knee 01/18/2019 I25.10 Atherosclerotic heart disease of [place] Traveling ECHO 2 coronary artery without angina pectoris 01/18/2019 I42.9 Cardiomyopathy, unspecified Alexis Sosa M.D. 01/18/2019 I42.9 Cardiomyopathy, unspecified Traveling ECHO 2 01/03/2019 I49.3 Ventricular premature depolarization Alexis Sosa M.D. 01/03/2019 I10 Essential (primary) hypertension Alexis Sosa M.D. 01/03/2019 I25.10 Atherosclerotic heart disease of [place] Alexis Sosa M.D. coronary artery with 01/03/2019 E78.00 Hypercholesterolemia Alexis Sosa M.D. 01/03/2019 I48.20 Chronic atrial fibrillation Alexis Sosa M.D. 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 11/16/2018 I48.91 Unspecified atrial fibrillation Alexis Sosa M.D. 11/16/2018 I49.3 Ventricular premature depolarization Alexis Sosa M.D. 11/14/2018 I49.3 Ventricular premature depolarization Nurse Visit [facility] 11/14/2018 I48.91 Unspecified atrial fibrillation Nurse Visit [facility] Plan of Treatment Future Appointment(s):04/19/2019 9:15 am - Jennifer Huizar M.D. at [facility] at Omfaal1505/01/2019 10:15 am - Alexis Jones M.D. at [facility] [place]/27/2020 4:30 pm - Avi Arrieta PA-C at [facility] at Fhvlcq4604/06/2019 4:30 pm - ELAINE Dickinson at [facility] at Gpybpe3604/06/2019 4:30 pm - Jennifer Huizar M.D. at [facility] at Oeedkb6007/13/2019 1:20 pm - Alexis Sosa M.D. at [facility]04/04/2019 - Tyrel Goel M.D.Z01.818 Encounter for other preprocedural uqeorokrtjcS68.11 Unilateral primary osteoarthritis, right kneeComments:R TKA planned per xqytoH90.10 Atherosclerotic heart disease of [place] coronary artery without angina pectorisComments:Stable with cardiology nsbiuoiiJ48.20 Chronic atrial fibrillationComments:On Xarelto Rx; pt holding Rx pre-op nowI10 Essential (primary) hypertensionComments:BPs goodE78.00 HypercholesterolemiaComments:Diet Rx only after pt tried statin and Zetia rx but had side effects. Praluent Rx planned now per sglmlhuymiF85.0 Malignant neoplasm of submandibular glandComments:Stable with ENT djeoelpuI97.33 Obstructive sleep apnea (adult) (pediatric)New Medication:Cpap Mask And Supplies - cpap supplies - headgear, cushion, tubing, filters, for sleep apnea dx 780.57 Pt using cpap regularly and benefits from the Rx.Comments:On CPAP Functional Status Description No Information Available Mental Status Description No Information Available Referrals Description No Information Available
--- OUTSIDE RECORDS SUMMARY | 2019-04-06 11:52 | XMS REPORT | Continuity of Care Document ---
:1945 External Reference #:[id number] Author Name Jessica Meza N.P. (transmitted by agent of provider Opal Maldonado) Address [address] [place] [address] Care Team Providers Name Role Phone Tyrel Goel III, MD - Internal Care Team Information Contract Mail Carrier Medicine Alexis Sosa MD - Cardiovascular Care Team Information Contract Mail Carrier Disease Jennifer Huizar MD - Adult Care Team Information Contract Mail Carrier [phone] Reconstructive Orthopaedic Surgery Problems Active Problems Provider [...] Never Smoked A Pipe Smoking Status Reviewed: 03/30/19 Never Smoked A Pipe Smokeless Tobacco Never [...] Medications SIG Qnty Indications Ordering Provider Date Praluent 1 injection sc 6ml I25.10 Jessica [...] 40 Millicuries Injection Technetium TC 99M Adán Cartwright DO [facility] 11/17/2016 Tetrofosmin, Per Unit Dose Up To 40 Millicuries Injection Immunizations CPT Code Status Date Vaccine Lot # [id number] Given 11/10/2016 Influenza Virus Vaccine, Quadrivalent, Split, [id number] Preservative Free 73472 Given 07/09/2015 Tdap - Tetanus/Diptheria/Acellular Pertussis [id number] 19496 Given 07/09/2015 Pneumococcal Conjugate Vaccine 13 Valent For [id number] Intramuscular Use 74804 Given 12/30/2009 Pneumonia Vaccine [id number] Vital Signs Date Vital Result Comment 03/30/2019 9:23am Height 68 inches 5'8" Weight 208.00 lb Heart Rate 80 /min BP Systolic 106 mmHg Rue reg cuff BP Diastolic 80 mmHg Rue reg cuff BP Systolic Sitting 140 mmHg BP Diastolic Sitting 80 mmHg Respiratory Rate 18 /min BMI (Body Mass Index) 31.6 kg/m2 Ejection Fraction 50-55% ECHO 01/18/2019 02/27/2019 2:31pm Height 68 inches 5'8" Weight 205.00 lb Heart Rate 56 /min BP Systolic 140 mmHg BP Diastolic 56 mmHg Respiratory Rate 18 /min Pain Level 0 BMI (Body Mass Index) 31.2 kg/m2 Results Test Acquired Date Facility Test Result H/L Range Note Order 03/23/2019 [facility] Stress Test, <pending> [address] [phone] Laboratory test 10/27/2018 [facility] Surgical SEE RESULT [address] [place] [address] [phone] 1 SEE RESULT BELOW Name: LINDAROSS Barbie : [address]: Yousuf Quinn MD Acct: [id number] Unit: [id number] AGE: 73 Location: [facility] Re10/27/18 SEX: M Status: DEP REF SPEC: [id number] THAIS: 10/27/18- SUBM DR: Yousuf Quinn MD REQ: [id number] RECD: 10/27/18 STATUS: ALON MATT DR: Tyrel [...] ON NEXT PAGE DEPARTMENT OF PATHOLOGY, [address] [place] [address] Luis Cope M.D. Director [facility] # [id number] 0.2 cm which are submitted entirely in [...] and Reported on: Amy Cheung MD 10/28/18 1299 END OF REPORT DEPARTMENT OF PATHOLOGY, [address] [place] [address] Luis Cope M.D. Director [facility] # [id number] Procedures Date Code Description Status 03/30/2019 87389 EKG Tracing & Interpretation Completed 03/23/2019 29991 Stress Test Completed 03/23/2019 88539 Myocardial Perfusion Imaging Tomographic (Spect) Completed Multiple Studies 01/18/2019 49285 ECHO Transthoracic, Real-Time 2D With Doppler And Completed Color Flow 01/03/2019 06701 EKG Tracing & Interpretation Completed 11/16/2018 33826 Holter Monitor Review (24 hr)dr review & interp only Completed 11/14/2018 61137 ECG Monitor/Recording W/Visual Superimposition Completed Scanning 10/27/2018 96476513 Colonoscopy Completed 05/20/2017 85263962 Colonoscopy Completed 01/14/2017 188941434 Diabetic Retinal Eye Exam Completed 06/03/2004 58403880 Colonoscopy Completed Medical Devices Description No Information Available Encounters Type Date Location Provider Dx Diagnosis Office Visit 02/27/2019 [facility] Jennifer Huizar, M25.561 Pain in right 2:15p at [place] M.Corrina knee M25.461 [place]usion, right knee M17.11 Unilateral primary osteoarthritis, right knee Office Visit 01/03/2019 [facility]is Enamorado I49.3 Ventricular 10:20a Cardiology Bertha Sosa premature depolarization I10 Essential (primary) hypertension I25.10 Athscl heart disease of [place] coronary artery w/o ang pctrs E78.00 Pure hypercholesterolemia, unspecified I48.20 Chronic atrial fibrillation, unspecified Office Visit 11/21/2018 10:30a [facility], 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 AT M.DYadira of submandibular [place] gland Assessments Date Code Description Provider 03/30/2019 I25.10 Atherosclerotic heart disease of [place] Jessica Meza, N.P. coronary artery without angina pectoris 03/30/2019 I42.9 Cardiomyopathy, unspecified Jessica Meza, N.P. 03/30/2019 I49.3 Ventricular premature depolarization Jessica Meza, N.P. 03/30/2019 I10 Essential (primary) hypertension Jessica SYadira Meza, N.P. 03/30/2019 I48.20 Chronic atrial fibrillation Jessica SYadira Meza, N.P. 03/23/2019 I25.10 Atherosclerotic heart disease of [place] Juventino Michelle M.D. coronary artery without angina pectoris 03/23/2019 I25.10 Atherosclerotic heart disease of [place] Alexis Sosa M.D. coronary artery without angina pectoris 03/23/2019 I42.9 Cardiomyopathy, unspecified Alexis Sosa M.D. 03/23/2019 I49.3 Ventricular premature depolarization Alexis Sosa M.D. 03/23/2019 I10 Essential (primary) hypertension Alexis Sosa M.D. 03/23/2019 I25.10 Atherosclerotic heart disease of [place] Alexis Sosa M.D. coronary artery without angina pectoris 03/23/2019 I48.20 Chronic atrial fibrillation Alexis Sosa M.D. 02/27/2019 M25.561 Pain in right knee Jennifer Huizar M.D. 02/27/2019 M25.461 Effusion, right knee Jennifer Huizar M.D. 02/27/2019 M17.11 Unilateral primary osteoarthritis, right Jennifer Huizar M.D. knee 01/18/2019 I25.10 Atherosclerotic heart disease of [place] Traveling ECHO 2 coronary artery without angina pectoris 01/18/2019 I42.9 Cardiomyopathy, unspecified Alexis Sosa M.D. 01/18/2019 I42.9 Cardiomyopathy, unspecified Traveling ECHO 2 01/03/2019 I49.3 Ventricular premature depolarization Alexis Sosa M.D. 01/03/2019 I10 Essential (primary) hypertension Alexis Sosa M.D. 01/03/2019 I25.10 Atherosclerotic heart disease of [place] Alexis Sosa M.D. coronary artery with 01/03/2019 E78.00 Hypercholesterolemia Alexis Sosa M.D. 01/03/2019 I48.20 Chronic atrial fibrillation Alexis Sosa M.D. 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 11/16/2018 I48.91 Unspecified atrial fibrillation Alexis Sosa M.D. 11/16/2018 I49.3 Ventricular premature depolarization Alexis Sosa M.D. 11/14/2018 I49.3 Ventricular premature depolarization Nurse Visit [facility] 11/14/2018 I48.91 Unspecified atrial fibrillation Nurse Visit [facility] Plan of Treatment Future Appointment(s):04/06/2019 4:30 pm - Avi Arrieta PA-C at [facility] at Hslhpl0404/06/2019 4:30 pm - ELAINE Dickinson at [facility] at Szkjyc7404/04/2019 3:20 pm - Tyrel Goel M.D. at [facility] - [facility]04/03/2019 8:30 am - Jennifer Huizar M.D. at [facility] at Jgcvoq9504/06/2019 4:30 pm - Jennifer Huizar M.D. at [facility] at Ywatpr1307/13/2019 1:20 pm - Alexis Sosa M.D. at [facility]03/30/2019 - Princess GreenwoodPYadiraI25.10 Atherosclerotic heart disease of [place] coronary artery without angina pectorisNew Medication: Praluent 75 mg/ml - 1 injection sc every 2 weeksFollow up:OV 07/13/2019 [facility] reprint lab order from 01/19Recommendations:Have lipids checked with next lab drawI42.9 Cardiomyopathy, drycxzefjvkB67.3 Ventricular premature jyezfgszfkqjkrW63 Essential (primary) leomjyworhxiM55.20 Chronic atrial fibrillation Functional Status Description No Information Available Mental Status Description No Information Available Referrals Description No Information Available
--- OUTSIDE RECORDS SUMMARY | 2019-04-06 11:52 | XMS REPORT | Continuity of Care Document ---
:1945 External Reference #:[id number] Author Name Jennifer Huizar M.D. (transmitted by agent of provider Olivia Shrestha) Address [address] [place] [id number] Care Team Providers Name Role Phone Tyrel Goel III, MD - Internal Care Team Information [facility] Medicine Alexis Sosa MD - Cardiovascular Care Team Information Car Washer Disease Jennifer Huizar MD - Adult Care Team Information Car Washer [phone] Reconstructive Orthopaedic Surgery Problems Active Problems Provider [...] Never Smoked A Pipe Smoking Status Reviewed: 04/03/19 Never Smoked A Pipe Smokeless Tobacco Never [...] Unknown 81mg Tablets day ( discharge DR GORMNA 04/03/18) Glucosamine 1 tab by mouth Unknown Chondroitin 1500 daily Complex 1500Com Capsules Medications Administered in Office Medication SIG Qnty Indications Ordering Provider Date Technetium TC 99M Juventino Michelle M.D. 03/23/2019 Tetrofosmin, Per Unit Dose Up To 40 Millicuries Injection Technetium TC 99M Juventino Michelle M.D. 03/23/2019 Tetrofosmin, Per Unit Dose Up To 40 Millicuries Injection Technetium TC 99M Adán Cartwright DO [facility] 11/17/2016 Tetrofosmin, Per Unit Dose Up To 40 Millicuries Injection Immunizations CPT Code Status Date Vaccine Lot # [id number] Given 11/10/2016 Influenza Virus Vaccine, Quadrivalent, Split, [id number] Preservative Free [id number] Given 07/09/2015 Tdap - Tetanus/Diptheria/Acellular Pertussis [id number] 73082 Given 07/09/2015 Pneumococcal Conjugate Vaccine 13 Valent For [id number] Intramuscular Use 81613 Given 12/30/2009 Pneumonia Vaccine [id number] Vital Signs Date Vital Result Comment 04/03/2019 8:37am Height 68 inches 5'8" Weight 211.25 lb Heart Rate 52 /min BP Systolic 120 mmHg BP Diastolic 70 mmHg Respiratory Rate 18 /min Pain Level 0 BMI (Body Mass Index) 32.1 kg/m2 03/30/2019 9:23am Height 68 inches 5'8" Weight 208.00 lb Heart Rate 80 /min BP Systolic 106 mmHg Rue reg cuff BP Diastolic 80 mmHg Rue reg cuff BP Systolic Sitting 140 mmHg BP Diastolic Sitting 80 mmHg Respiratory Rate 18 /min BMI (Body Mass Index) 31.6 kg/m2 Ejection Fraction 50-55% ECHO 01/18/2019 Results Test Acquired Date Facility Test Result H/L Range Note Order 03/23/2019 [facility] Stress Test, <pending> [address] Exercise [address] [phone] Laboratory test 10/27/2018 [facility] Surgical SEE RESULT [address] [place] [address] [phone] 1 SEE RESULT BELOW Name: ROSS STEWART : [address]: Yousuf Quinn MD Acct: [id number] Unit: [id number] AGE: 73 Location: [facility] Re10/27/18 SEX: M Status: DEP REF SPEC: [id number] THAIS: 10/27/18- SUBM DR: Yousuf Quinn MD REQ: [id number] RECD: 10/27/18 STATUS: ALON MATT DR: Tyrel [...] CONTINUED ON NEXT PAGE DEPARTMENT OF PATHOLOGY, [address] [place] [address] Luis Cope M.D. Director [facility] # [id number] 0.2 cm which are submitted entirely in [...] and Reported on: Amy Cheung MD 10/28/18 3516 END OF REPORT DEPARTMENT OF PATHOLOGY, [address] [place] [address] Luis Cope M.D. Director [facility] # [id number] Procedures Date Code Description Status 03/30/2019 73339 EKG Tracing & Interpretation Completed 03/23/2019 82192 Stress Test Completed 03/23/2019 81167 Myocardial Perfusion Imaging Tomographic (Spect) Completed Multiple Studies 01/18/2019 17494 ECHO Transthoracic, Real-Time 2D With Doppler And Completed Color Flow 01/03/2019 71739 EKG Tracing & Interpretation Completed 11/16/2018 64110 Holter Monitor Review (24 hr)dr review & interp only Completed 11/14/2018 74391 ECG Monitor/Recording W/Visual Superimposition Completed Scanning 10/27/2018 05344712 Colonoscopy Completed 05/20/2017 00508977 Colonoscopy Completed 01/14/2017 291824591 Diabetic Retinal Eye Exam Completed 06/03/2004 04181166 Colonoscopy Completed Medical Devices Description No Information Available Encounters Type Date Location Provider Dx Diagnosis Office Visit 02/27/2019 [facility] Jennifer Huizar, M25.561 Pain in right 2:15p at [place] Bertha knee M25.461 Effusion, right knee M17.11 Unilateral primary osteoarthritis, right knee Office Visit 01/03/2019 [facility] I49.3 Ventricular 10:20a [facility] Bertha Sosa premature depolarization I10 Essential (primary) hypertension I25.10 [place]scl heart disease [place] coronary artery w/o ang pctrs E78.00 Pure hypercholesterolemia, unspecified I48.20 Chronic atrial fibrillation, unspecified Office Visit 11/21/2018 10:30a [facility], 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 04/03/2019 M17.11 Unilateral primary osteoarthritis, right Jennifer Huizar M.D. knee 03/30/2019 R94.31 Abnormal electrocardiogram [ECG] [EKG] Juventino Michelle M.D. 03/30/2019 I25.10 Atherosclerotic heart disease of [place] Jessica Meza, N.PYadira coronary artery without angina pectoris 03/30/2019 I42.9 Cardiomyopathy, unspecified Jessica Meza, N.P. 03/30/2019 I49.3 Ventricular premature depolarization Jessica Meza, N.P. 03/30/2019 I10 Essential (primary) hypertension Jessica S. Derrick, N.P. 03/30/2019 I48.20 Chronic atrial fibrillation Jessica SYadira Meza, N.P. 03/30/2019 Z01.810 Encounter for preprocedural Jessica Meza, N.P. cardiovascular examination 03/30/2019 M17.11 Unilateral primary osteoarthritis, right Jessica Meza, N.P. knee 03/23/2019 I25.10 Atherosclerotic heart disease of [place] Juventino Michelle M.D. coronary artery without angina pectoris 03/23/2019 I25.10 Atherosclerotic heart disease of [place] Alexis Sosa M.D. coronary artery without angina pectoris 03/23/2019 I42.9 Cardiomyopathy, unspecified Alexis Sosa M.D. 03/23/2019 I49.3 Ventricular premature depolarization Alexis Sosa M.D. 03/23/2019 I10 Essential (primary) hypertension Alexis Sosa M.D. 03/23/2019 I25.10 Atherosclerotic heart disease of [place] Alexis Sosa M.D. coronary artery without angina pectoris 03/23/2019 I48.20 Chronic atrial fibrillation Alexis Sosa M.D. 02/27/2019 M25.561 Pain in right knee Jennifer Huizar M.D. 02/27/2019 M25.461 Effusion, right knee Jennifer Huizar M.D. 02/27/2019 M17.11 Unilateral primary osteoarthritis, right Jennifer Huizar M.D. knee 01/18/2019 I25.10 Atherosclerotic heart disease of [place] Traveling ECHO 2 coronary artery without angina pectoris 01/18/2019 I42.9 Cardiomyopathy, unspecified Alexis Sosa M.D. 01/18/2019 I42.9 Cardiomyopathy, unspecified Traveling ECHO 2 01/03/2019 I49.3 Ventricular premature depolarization Alexis Sosa M.D. 01/03/2019 I10 Essential (primary) hypertension Alexis Sosa M.D. 01/03/2019 I25.10 Atherosclerotic heart disease [place] Alexis Sosa M.D. coronary artery with 01/03/2019 E78.00 Hypercholesterolemia Alexis Sosa M.D. 01/03/2019 I48.20 Chronic atrial fibrillation Alexis Sosa M.D. 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 11/16/2018 I48.91 Unspecified atrial fibrillation Alexis Sosa M.D. 11/16/2018 I49.3 Ventricular premature depolarization Alexis Sosa M.D. 11/14/2018 I49.3 Ventricular premature depolarization Nurse Visit [facility] 11/14/2018 I48.91 Unspecified atrial fibrillation Nurse Visit [facility] Plan of Treatment Future Appointment(s):05/01/2019 10:15 am - Alexis Jones M.D. at [facility] AT Ypfyqjor86/27/2020 4:30 pm - Avi Arrieta PA-C at [facility] at Sqnyjb0204/06/2019 4:30 pm - ELAINE Dickinson at [facility] at Gfetav4304/04/2019 3:20 pm - Tyrel Goel M.D. at [facility] Internal Medicine - [facility]04/06/2019 4:30 pm - Jennifer Huizar M.D. at [facility] at Avyhyn0107/13/2019 1:20 pm - Alexis Sosa M.D. at [facility]04/03/2019 - Jennifer Huizar M.D.M25.561 Pain in right kneeFollow up:Follow up: 2 weeks after unpukquZ51.11 Unilateral primary osteoarthritis, right knee Functional Status Description No Information Available Mental Status Description No Information Available Referrals Description No Information Available
[2019-04-06] MEDS: Lactated Ringers 1000 ML Bag* 1,000 ML IV SCH (19:05)
--- NOTE | 2019-04-06 20:05 | OP ---
Operative Report - Blank - Operative Report Date of Operation: 04/06/19 Note: ROSS MCKEON 1945 Date of Surgery: 04/06/19 Jennifer Huizar MD Principal Gifts Officer: Aleksandar HENRY did help throughout the procedure with preparation of the knee, wound retraction, manipulation of the knee, and wound closure. Anesthesiologist: Dr. Santamaria Anesthesia Type: Spinal Preoperative Diagnosis: Right severe degenerative osteoarthritis of the knee Postoperative Diagnosis: As above Procedure Performed: Right Total Knee Arthroplasty Tourniquet time: 48 minutes Complications: None Specimen: Bone and cartilage from the right knee joint sent to pathology. Hardware Used: Cemented Aguilar and Nephew total knee hardware was used - For the femur a size 7 right legion posterior stabilized femoral component, for the tibia a size 6 right raghavendra II tibial baseplate, for the insert a size 9mm 5-6 posterior stabilized articular polyethylene insert, and for the patella a size 35 3-peg all poly patella. Brief History/Indication: ROSS MCKEON was known in clinic and had a history of severe right knee pain and swelling. He failed conservative treatment with anti-inflammatories, pain pills, intra-articular injections and physical therapy. He elected to undergo right total knee arthroplasty due to continued pain and decreased quality of life. Radiographs showed severe end stage osteoarthritis of the knee with bone on bone contact. Informed consent was obtained from the patient. He understood the risks of surgery included but were not limited to: bleeding, infection, damage to nearby structures, intraoperative fracture, nerve palsy, failure of the hardware, early loosening, knee stiffness or loss of motion, anesthesia complications, stroke, heart attack , blood clot and . He wished to proceed. Intra-Operative Findings: Intraoperatively the patient was noted to have severe loss of cartilage in all 3 compartments of the knee. Description of the Procedure: ROSS MCKEON was identified in the preanesthesia unit. His right knee was marked as the correct operative side. Informed consent was signed and placed in the chart. The patient was taken to the operating room and placed under anesthesia without complication. A jackman catheter was placed. A tourniquet was placed on the right thigh. The right lower extremity was prepped and draped in the usual sterile fashion. Preoperative time-out was made to correctly identify the patient, side and site. Appropriate intraoperative antibiotics were given within one hour of incision. Tourniquet was inflated. A midline incision was made and carried sharply down to the extensor mechanism. A new 10 blade was used to make a standard medial parapatellar arthrotomy. The patella was subluxed laterally. Electrocautery was used to dissect soft tissue off the superomedial tibia to the midsagittal plane. The knee was flexed up. The anterior horn of the lateral meniscus and the ACL were sharply incised. A drill was used to enter the distal femur. The intramedullary distal femoral cutting guide was pinned on the distal femur. The oscillating saw was used to make the distal femoral cut. The external rotation guide was pinned on the distal femur and the distal femur was sized to a size 7. The size 7 multi-cutting jig was pinned on the distal femur. The oscillating saw was used to make the appropriate 4 chamfer cuts. Next the PCL was completely released. The extramedullary tibial cutting guide was pinned on the proximal tibia and the oscillating saw was used to make the proximal tibial cut perpendicular to the mechanical axis of the tibia. The bone was carefully removed. The knee was brought out into full extension. The spacer block was placed and had excellent fit with the knee in full extension. The medial and lateral ligaments were well balanced. The flexion and extension gaps were well balanced. The knee was flexed up. Lamina electrician shop was placed both medially and laterally. Any remaining meniscus was removed with electrocautery. Curved osteotome was used to remove any posterior osteophytes. The tibial tray and drop shaq were placed and confirmed a satisfactory tibial cut. The size 7 right femoral trial was impacted onto the distal femur. This trial had excellent fit and stability. The box for the posterior stabilized implant was prepared using a box cut osteotome and a reamer. Next a tibial tray trial and 9 mm insert trial was placed. The knee was taken through a range of motion and had full extension to 130 degrees of flexion. Patellofemoral tracking was satisfactory. The patella was inverted and sized to a size 35. Three peg holes were drilled through the size 35 drill guide. The trial patella was placed and the knee was taken through a range of motion. There was satisfactory patellofemoral tracking. All trials were removed. The tibia was subluxed anteriorly and sized to a size 6. The proximal tibial was prepared with a size 6 keel punch. All bony cut surfaces were irrigated with sterile saline and dried. Final implants were cemented into place starting with the tibia, followed by the femur, and last the patella. A 9 mm insert trial was placed and the knee was brought into full extension. Tourniquet was turned down and the knee was copiously irrigated with sterile saline. Electrocautery was used to obtain meticulous hemostasis. Once the cement had fully cured, the insert trial was removed. Any excess cement was removed from around the hardware and capsule. Final insert chosen was a 9 mm posterior stabilized Raghavendra II articular insert size 5-6. Stability of the insert was checked and noted to be stable. The extensor mechanism was closed using number 1 vicryls. The rest of the incision was closed in a layered fashion using 0 and 2-0 vicryls. The skin was closed using 3-0 nylon suture. Sterile xeroform, 4x4s and webril were used to cover the incision. Brennen wrap and cold pack were used to cover the dressings. The patients anesthesia was reversed without difficulty. He was taken to the PACU in stable condition. Intended weight-bearing will be as tolerated.
[2019-04-06] MEDS: Magnesium Hydroxide LIQ* 30 ML UDC PO SCH (20:40)
[2019-04-06] MEDS: Docusate CAP* 100 MG PO SCH (20:40)
[2019-04-06] MEDS: HYDROmorphone TAB* 2 MG PO PRN (20:40)
--- NOTE | 2019-04-06 20:45 | CONS ---
HOSPITAL MEDICINE CONSULTATION REPORT: DATE OF CONSULT: 04/06/19 PROVIDER: Henrietta Gillespie NP ATTENDING PHYSICIAN: Dr. Jennifer Huizar. CONSULTING PHYSICIAN: Dr. Andres Fritz (dictated by Henrietta Gillespie NP) . REASON FOR CONSULT: Co-management of chronic medical conditions. HISTORY OF PRESENT ILLNESS: Mr. Stewart is a 74-year-old male with a past medical history significant for TIA, history of prostate cancer, AFib, coronary artery disease, and sleep apnea, who wears a CPAP at night, who presented to [facility] for an elective right total knee arthroplasty with Dr. Huizar. Please see dictated H and P from Nakia Wallace for complete details. In brief, the patient had ongoing pain, failed conservative measures, therefore opted to have a right total knee arthroplasty with Dr. Huizar. In the postoperative period, the patient has no complaints. He denies any recent illnesses. He denies any fever, chills, chest pain, shortness of breath. He denies any nausea, vomiting , diarrhea. He denies any urinary frequency, urgency, or pain with urination. He denies any dysphagia, arthralgias, myalgias, rashes, lesions, open sores, psychosis, or anxiety. Due to the patient's history of TIA and atrial fibrillation, coronary artery disease, Hospital Medicine was asked to help co-manage his care during this hospitalization. PAST MEDICAL HISTORY: Significant for: 1. TIA. 2. Prostate cancer. 3. AFib. 4. Coronary artery disease. 5. Sleep apnea, wears CPAP at night. PAST SURGICAL HISTORY: 1. CABG in March of 2018. 2. Left total knee arthroplasty. 3. Left MCL repair. 4. Prostatectomy. 5. 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 HOME MEDICATIONS: Include: 1. Cartia 180 mg p.o. daily. 2. Xarelto 20 mg p.o. daily. 3. Zinc 30 mg p.o. daily. 4. Aspirin 81 mg p.o. daily. ALLERGIES: OXYCODONE, HYDROCODONE, SIMVASTATIN, PREDNISONE, and LISINOPRIL. FAMILY HISTORY: No reported history of coronary artery disease. Grandfather with diabetes and father with lung cancer. SOCIAL HISTORY: The patient denies any tobacco, reports rare alcohol use. Denies any illicit drug use. Surrogate decision maker in the event he is unable to make his own decisions is his . He is a full code. REVIEW OF SYSTEMS: A 14-point review of systems was completed. All pertinent positives were mentioned in the HPI. The patient does not complain of any knee pain at this time. PHYSICAL EXAM: General: At this time, Mr. Stewart is alert and oriented, resting in a hospital bed in PACU. He is in no acute distress. Vital Signs: Blood pressure 123/68, heart rate 70, respirations 16, O2 saturation 97%, temperature was 96.8. HEENT: Head is atraumatic, normocephalic. Eyes: EOMs are intact. Sclerae anicteric and not pale. Oral mucosa is moist. Neck is supple. Lungs are clear to auscultation bilaterally. No wheezes, rales, or rhonchi. Cardiac: S1, S2. Irregular rate and rhythm. No rubs or gallops. Abdomen is soft and nontender. Bowel sounds are present x4. Neurologic: He is awake, alert, oriented x3. His speech is clear. Thought process is intact. Extremities: He is able to move all 4 extremities. There is no clubbing or cyanosis. Pedal pulses are +2 bilaterally. He does have a dressing that is dry and intact to his right knee. Skin: He does have a dressing that is dry and intact to the right knee. DIAGNOSTIC STUDIES/LAB DATA: CBC from 04/03/19: WBCs are 5.5, RBCs 5.27, hemoglobin 15.9, hematocrit 47, platelet count is 170. INR was 1.54. Sodium 139, potassium 4.5, chloride 105, carbon dioxide is 29, anion gap is 5, BUN 25, creatinine 1.21, glucose was 98. Calcium was 9.5. ASTs were 20, ALTs were 24, alkaline phosphatase 70. Urine was within normal limits. IMPRESSION AND PLAN: Mr. Stewart is a 74-year-old male with a past medical history significant for transient ischemic attacks , history of prostate cancer , atrial fibrillation, coronary artery disease, and sleep apnea, who wears CPAP at night, who presented to [facility] for an elective right total knee arthroplasty with Dr. Huizar. Our recommendations are as follows: 1. Status post right total knee arthroplasty. Management per Orthopedics. PT/ OT per Orthopedics. Bowel regimen per Orthopedics. Pain management per Orthopedics. 2. Atrial fibrillation. He should continue on Cartia 180 mg p.o. daily. He should resume Xarelto as soon as possible and continue aspirin 81 mg when able. 3. History of transient ischemic attack. He should continue on Xarelto and aspirin as soon as possible. 4. Sleep apnea. The patient should resume his CPAP, he has his own. 5. FEN: He can have a heart healthy diet, caffeine okay. 6. Code status: He is a full code. 7. DVT prophylaxis: Per Orthopedics. TIME SPENT: Time spent on this consultation was 45 minutes, greater than half that time was spent at the bedside reviewing events leading thus far to his hospitalization, performing physical exam, and reviewing my plan of care. I have discussed this with my attending, Dr. Andres Fritz; he is in agreement with my plan. HENRIETTA GILLESPIE, BUSINESS LAWYER [id number]/CPS #: [id number] CHAVEZ
[2019-04-06] MEDS: Acetaminophen TAB* 325 MG PO SCH (22:25)
[2019-04-06] MEDS: ceFAZolin 1 GM ADVAN(*) 1 GM in NS 0.9% 50 ML* 50 ML IVPB SCH (22:25)
[2019-04-07] MEDS: HYDROmorphone TAB* 2 MG PO PRN ×3 (04:22→14:39)
[2019-04-07] MEDS: Lactated Ringers 1000 ML Bag* 1,000 ML IV SCH (04:22)
[2019-04-07 05:35] LABS: Hematocrit 41 % (42-52); Hemoglobin 14.2 g/dL (14.0-18.0); Mean Platelet Volume 8.2 fL (7.4-10.4); Platelet Count 164 10^3/uL (150-450)
[2019-04-07 05:47] LABS: BUN/Creatinine Ratio 21.2 (8-20); Calcium 8.7 mg/dL (8.6-10.3); EGFR African American 84.2 (>60); EGFR Non-African American 69.6 (>60); Potassium 4.4 mmol/L (3.5-5.0)
[2019-04-07] MEDS: Acetaminophen TAB* 325 MG PO SCH ×2 (06:12→14:39)
[2019-04-07] MEDS: ceFAZolin 1 GM ADVAN(*) 1 GM in NS 0.9% 50 ML* 50 ML IVPB SCH ×2 (06:13→14:39)
[2019-04-07] MEDS: Docusate CAP* 100 MG PO SCH (08:52)
[2019-04-07] MEDS: Magnesium Hydroxide LIQ* 30 ML UDC PO SCH (09:54)
--- NOTE | 2019-04-07 12:13 | PN ---
Progress Note - Progress Note Date of Service: 04/07/19 SOAP: Subjective: [Pt was seen today sitting up in bed eating lunch. States that he is doing very well. Very happy with the surgery at this point. He denies any chest pain, SOB, nausea or vomiting. He would like to go home today. ] Objective: [General: Pt is alert and oriented x3. NAD MSK, RLE: Dressing is c/d/i. +df/pf. NVI, Calf is soft and non tender. 2+ DP pulse Vital Signs Temp 97.9 F 04/07/19 08:13 Pulse 108 04/07/19 08:13 Resp 18 04/07/19 08:52 BP 132/85 04/07/19 08:13 Pulse Ox 98 04/07/19 08:13 Intake & Output 04/06/19 04/07/19 04/07/19 18:59 06:59 18:59 Intake Total 2400 400 Output Total 849 855 Balance 1551 -455 Weight 214 lb 12.8 oz Intake: IV Fluids 2400 LR 2400 Oral 400 Output: Ambriz 750 855 Estimated Blood Loss 99 Other: # Bowel Movements 0 ] Assessment: [POD 1 RTKA ] Plan: [Xarelto 20mg qd Tramadol for pain medication Continue with PT DC home after second PT session ]
--- NOTE | 2019-04-07 12:16 | DS ---
Orthopedic Discharge Summary - Discharge Summary Date of Admission:04/06/19 Date of Discharge: 04/07/2019 Date of Surgery: 04/06/2019 Attending Orthopedic Provider: Dr. Huizar Pre-operative Diagnosis: Right knee osteoarthritis Operative Procedure: Right total knee replacement Disposition of Patient: Home Home care vs Outpatient services: Home care Condition of Patient: Good Pain medication RX at discharge: Tramadol 50mg DVT prophylaxis RX at discharge: Xarelto 20mg History: ROSS MCKEON is a 74 year old M with years of increasingly severe right knee pain. Patient has failed conservative management and has elected to undergo a right total knee replacement Hospital Course: ROSS was admitted to [facility] on 04/06/19. Patient underwent a right total knee replacement without complication followed by a brief recovery in PACU and transfer to the Short Stay Surgical Unit in stable condition. Our hospitalist service, physical therapy and occupational therapy also participated in this patients care. Post-op day 1: patient was alert and in no acute distress. Dressing was clean, dry and intact. Operative extremity dorsiflexion and plantarflexion intact, sensation intact to light touch distally, DP2+. Dressing was changed, incision was clean, dry and intact. Patient was deemed to be medically and orthopedically stable for discharge. Physical therapy goals were met. Home Medications Medication Instructions Recorded Confirmed Type Glucosamine Sulfate Dipot Chlr 1,000 mg PO QAM 05/17/17 04/06/19 History [Glucosamine] dilTIAZem HCl [Cartia Xt] 180 mg PO QPM 05/17/17 04/06/19 History Rivaroxaban TAB(*) [Xarelto 10 mg 20 mg PO SEE INSTRUCTIONS 12/10/17 04/06/19 History (*)] Zinc Gluconate-Zinc Picolinate 30 mg PO DAILY PRN 02/24/18 04/06/19 History [Zinc] Aspirin [Aspir-Low] 81 mg PO QAM 04/03/19 04/06/19 History Discharge Instructions following Orthopedic Surgery: Activity: * Weight Bearing as tolerated * Continue physical therapy and occupational therapy exercises as shown * If you have elected to have home physical therapy, continue therapy exercises at home. If you have elected outpatient physical therapy, please start therapy as an outpatient right away. Wound care: * OK to shower on post-op day 3, no bathing, swimming, or submerging wound. * Use gentle soap, pat dry. Cover with gauze, SANA wrap or tape. * If you elected to have a visiting home nurse, they will perform wound checks. Call Orthopedic office for: * Increased drainage * Redness * Increased pain * Fever Go to ER with shortness of breath or chest pain. Diet: * Regular diet * Increase fluids and fiber to prevent constipation. * Continue to use stool softeners, call office if no bowel motion within 48 hours. Medications See Home Medication List in your packet for medications that you should take after discharge. DVT Prophylaxis: Xarelto Dosin mg daily x 30 days Pain Control: Tramadol 50 mg tabs: take 1 tab for moderate pain and 2 tabs for every pain every 6 hours as needed. Max 8 per day. Hold for sedation, wean off as soon as pain allows. Antibiotics are required prior to any dental work. FOLLOW UP: Follow up with Dr. Huizar Within 10 - 14 days, call for appointment Please call our office with any questions or concerns ([phone])
[2019-04-07 12:23] VITALS: BP 121/69
[~2019-04-07 15:45] MED LIST changes: -Acetaminophen TAB* 325 MG PO PRN; +Bupivacaine 0.5% SDV PF* 30ML VIAL ONE; +Cyclobenzaprine TAB* 10 MG PO PRN; -Dexamethasone IV* 4 MG/ML 1 ML (4 MG) IV SLOW PU ONE; -Dexamethasone IV* 4 MG/ML 1 ML (4 MG) ONE; +Dexamethasone TAB* 4 MG ONE; +Dexamethasone TAB* 4 MG PO ONE; +Diltiazem CD CAP* 180 MG PO SCH; -EPHEDrine (Pressors)* 50 MG/ML VIAL ONE; +Famotidine IV* 10 MG/ML 2 ML (20 mg) IV ONE; +Famotidine IV* 10 MG/ML 2 ML (20 mg) ONE; -Famotidine TAB* 20 MG ONE; -Famotidine TAB* 20 MG PO ONE; +HYDROmorphone INJ* 0.5 MG/0.5 ML SYRINGE IV SLOW PU PRN; +HYDROmorphone INJ1* 1 MG/ML SYRINGE IV PRN; +HYDROmorphone TAB* 4 MG PO PRN; +KETAMINE HCL* 50 MG/ML 10 ML VIAL ONE; -Ketorolac INJ* 30 MG/ML 1 ML VIAL IV PRN; -Ketorolac INJ* 30 MG/ML 1 ML VIAL ONE; -Lidocain 1% EPI 1:100,000 * 30 ML MDV ONE; -Lidocaine 2% PF * 5 ML VIAL ONE; +Magnesium Hydroxide LIQ* 30 ML UDC PO PRN; -Midazolam* 1 MG/ML 2 ML VIAL (2 MG) ONE; +Midazolam* 1 MG/ML 5 ML VIAL (5 MG) ONE; +Ondansetron INJ* 2 MG/ML VIAL IV PRN; -Ondansetron INJ* 2 MG/ML VIAL ONE; +Ondansetron ODT TAB* 4 MG ONE; +Ondansetron ODT TAB* 4 MG PO ONE; +Ondansetron ODT TAB* 4 MG PO PRN; +Ondansetron TAB* 4 MG PO PRN; +PROCHLORPERAZINE INJ 5 MG/ML 2 ML VIAL IV PRN; -Phenylephrine 40 MCG/ML SYRINGE ONE; +Polyethylene Glycol 3350* 17 GM PACKET PO PRN; +ROPIVACAINE 5 MG/ML 30 ML BTL (0.5%) ONE; +Rivaroxaban TAB(*) 20 MG TAB PO SCH; -Rocuronium* 10 MG/ML VIAL ONE; +Vitamin THERAPEUTIC TAB PO SCH; +ceFAZolin 2 GM in NS PREMIX(*) 2 GM/100 ML BAG IVPB ONE; +diPHENhydraMINE IV* 50 MG/ML 1 ml VIAL (BENADRYL) IV PRN; +diPHENhydraMINE PO* 25 MG PO PRN; -oxyCODONE/Acetamin 5/325 MG* TAB PO PRN; +traMADol TAB* 50 MG PO PRN
== END | disposition home or self-care (01) | DRG 302 ==
LOC: AA 04-06 11:48 → SSU 04-06 16:39
PROVIDERS: ADMIT Orthopaedic Surgery Adult Reconstructive Orthopaedic Surgery; ATTEND Orthopaedic Surgery Adult Reconstructive Orthopaedic Surgery
PROC: 0SRC0J9 Replacement of Right Knee Joint with Synthetic Substitute, Cemented, Open Approach (ICD-10-PCS; principal; 2019-04-06 15:15)
DX: M17.11 Unilateral primary osteoarthritis, right knee (principal); I48.91 Unspecified atrial fibrillation; E66.9 Obesity, unspecified; I25.10 Atherosclerotic heart disease of native coronary artery without angina pectoris; M25.761 Osteophyte, right knee; G47.30 Sleep apnea, unspecified; Z96.652 Presence of left artificial knee joint; Z90.79 Acquired absence of other genital organ(s); Z88.5 Allergy status to narcotic agent; Z88.8 Allergy status to other drugs, medicaments and biological substances; Z68.32 Body mass index [BMI] 32.0-32.9, adult; Z85.46 Personal history of malignant neoplasm of prostate; Z95.1 Presence of aortocoronary bypass graft; Z28.21 Immunization not carried out because of patient refusal; Z86.73 Personal history of transient ischemic attack (TIA), and cerebral infarction without residual deficits; Z79.899 Other long term (current) drug therapy
CPT/HCPCS: 36415; 80048; 85014; 85018; 85049; 88305; 88311; A9270-GY; C1776; J0690; J2250; J2704; J2795; J3010; J3490; J8540